=== PATIENT | male | born 1930 | race Caucasian/White ===

== ENCOUNTER → 2016-09-06 | Outpatient (CLI) | payer MEDICARE, OTHER ==
[~2016-09-06] MED LIST: ALPR0.5T3 PO; ALUM5LIQ PO; AMLO5TAB22 PO; ASPI81TA82 PO; ATOR80TA PO; BENI40TA31 PO; ERGO2000 PO; IMDU30TA PO; LEVO.05 PO; METH4PAK PO; NEBI5 PO; NITR0.4S SL; NOVOLOGMXP SC; OCUV PO; OMEP20TA PO; TIMO0.5S6 EACH EYE; VITA100020 PO; VITA20002 PO
[2016-09-06 11:11] LABS: AUTOMATED NEUTROPHIL # 4.1 TH/MM3 (1.8-7.7); BASOPHIL % 0.3 % (0.0-2.0); EOSINOPHIL % 0.5 % (0.0-4.0); HEMATOCRIT 36.3 % (39.0-51.0); HEMO FLAGS DIFF FINAL; LYMPH % 30.5 % (9.0-44.0); LYMPHOCYTE # 2.2 TH/MM3 (1.0-4.8); MEAN CELL VOLUME 86.4 FL (80.0-100.0); MEAN CORPUSCULAR HEMOGLOBIN 28.1 PG (27.0-34.0); MEAN CORPUSCULAR HGB CONC 32.5 % (32.0-36.0); MONO % 12.5 % (0.0-8.0); NEUT % 56.2 % (16.0-70.0); PLATELET COUNT 134 TH/MM3 (150-450); RED CELL DISTRIBUTION WIDTH 16.2 % (11.6-17.2); WHITE BLOOD COUNT 7.3 TH/MM3 (4.0-11.0)
[2016-09-06 11:29] LABS: ALKALINE PHOSPHATASE 72 U/L (45-117); ALT (GPT) 22 U/L (12-78); ANION GAP 9 MEQ/L (5-15); AST (GOT) 14 U/L (15-37); BICARBONATE 28.5 MEQ/L (21.0-32.0); BLOOD UREA NITROGEN 37 MG/DL (7-18); CHLORIDE 108 MEQ/L (98-107); GLOMERULAR FILTRATION RATE 39 ML/MIN (>89); GLUCOSE,FASTING 152 MG/DL (74-99); HDL CHOLESTEROL 82.4 MG/DL (40.0-60.0); LDL CHOLESTEROL 52 MG/DL (0-99); POTASSIUM 4.7 MEQ/L (3.5-5.1); SODIUM (NA) 145 MEQ/L (136-145); TOTAL BILIRUBIN ADULT 0.7 MG/DL (0.2-1.0)
[2016-09-06 12:17] LABS: HEMOGLOBIN A1a 1.7 %; HEMOGLOBIN A1b 2.5 %; HEMOGLOBIN Ao 80.6 %; HEMOGLOBIN LA1C 2.6 %; HEMOGLOBIN P3 6.6 %
== END ==
LOC: PLAB 08:36
PROVIDERS: ATTEND Family Medicine
DX: I10 Essential (primary) hypertension (principal)
CPT/HCPCS: 36415; 80053; 80061; 83036; 84443; 85025

== ENCOUNTER → 2016-09-20 | Outpatient (CLI) | payer MEDICARE, OTHER ==
[2016-09-20 15:58] LABS: AUTOMATED NEUTROPHIL # 3.3 TH/MM3 (1.8-7.7); BASOPHIL % 0.7 % (0.0-2.0); EOSINOPHIL # 0.1 TH/MM3 (0-0.4); EOSINOPHIL % 1.5 % (0.0-4.0); HEMATOCRIT 34.2 % (39.0-51.0); HEMO FLAGS DIFF FINAL; LYMPH % 30.6 % (9.0-44.0); LYMPHOCYTE # 1.9 TH/MM3 (1.0-4.8); MEAN CELL VOLUME 86.9 FL (80.0-100.0); MEAN CORPUSCULAR HGB CONC 32.3 % (32.0-36.0); MONO % 15.2 % (0.0-8.0); PLATELET COUNT 120 TH/MM3 (150-450); RED BLOOD COUNT 3.94 MIL/MM3 (4.50-5.90); RED CELL DISTRIBUTION WIDTH 15.8 % (11.6-17.2); WHITE BLOOD COUNT 6.2 TH/MM3 (4.0-11.0)
[2016-09-20 16:20] LABS: BACTERIA, URINE RARE /hpf; BLOOD, URINE NEG (NEG); COMMENT (UR) CULTURE INDICATED; CULTURE IF INDICATED CULTURE INDICATED; GLUCOSE,URINE NEG (NEG); KETONE, URINE NEG (NEG); MUCUS URINE FEW /lpf (OCC); NITRITE,URINE NEG (NEG); URINE COLOR YELLOW (YELLW/STRAW)
[2016-09-20 16:34] LABS: AMYLASE 38 U/L (25-115); ANION GAP 7 MEQ/L (5-15); AST (GOT) 14 U/L (15-37); BLOOD UREA NITROGEN 31 MG/DL (7-18); CHLORIDE 108 MEQ/L (98-107); GLOMERULAR FILTRATION RATE 40 ML/MIN (>89); POTASSIUM 4.1 MEQ/L (3.5-5.1); SODIUM (NA) 141 MEQ/L (136-145)
[2016-09-20 17:00] LABS: ALKALINE PHOSPHATASE 77 U/L (45-117); ALT (GPT) 18 U/L (12-78); TOTAL BILIRUBIN ADULT 0.6 MG/DL (0.2-1.0)
== END ==
LOC: PLAB 15:00
PROVIDERS: ATTEND Family Medicine
DX: R14.0 Abdominal distension (gaseous) (principal); R53.82 Chronic fatigue, unspecified; N18.3 Chronic kidney disease, stage 3 (moderate); R50.9 Fever, unspecified; B95.2 Enterococcus as the cause of diseases classified elsewhere
CPT/HCPCS: 36415; 80053; 81001; 82150; 82607; 83690; 84443; 85025; 87040; 87077; 87086; 87186

== ENCOUNTER → 2016-12-06 | Outpatient (CLI) | payer MEDICARE, OTHER ==
[2016-12-06 14:15] LABS: ALKALINE PHOSPHATASE 88 U/L (45-117); ALT (GPT) 28 U/L (12-78); ANION GAP 10 MEQ/L (5-15); AST (GOT) 19 U/L (15-37); BICARBONATE 26.5 MEQ/L (21.0-32.0); BLOOD UREA NITROGEN 51 MG/DL (7-18); CHLORIDE 106 MEQ/L (98-107); GLOMERULAR FILTRATION RATE 36 ML/MIN (>89); GLUCOSE,FASTING 113 MG/DL (74-99); HDL CHOLESTEROL 71.5 MG/DL (40.0-60.0); LDL CHOLESTEROL 52 MG/DL (0-99); POTASSIUM 4.2 MEQ/L (3.5-5.1); SODIUM (NA) 142 MEQ/L (136-145); TOTAL BILIRUBIN ADULT 0.6 MG/DL (0.2-1.0)
[2016-12-06 14:42] LABS: MICRO ALBUMIN RANDOM URINE RAW 25.5 MG/L (0.0-30.0)
[2016-12-06 17:14] LABS: HEMOGLOBIN A1a 1.3 %; HEMOGLOBIN A1b 2.1 %; HEMOGLOBIN Ao 81.7 %; HEMOGLOBIN LA1C 2.4 %; HEMOGLOBIN P3 6.6 %
== END ==
LOC: PLAB 09:25
PROVIDERS: ATTEND Family Medicine
DX: E53.8 Deficiency of other specified B group vitamins (principal); E78.5 Hyperlipidemia, unspecified; E11.9 Type 2 diabetes mellitus without complications; E03.9 Hypothyroidism, unspecified; I12.9 Hypertensive chronic kidney disease with stage 1 through stage 4 chronic kidney disease, or unspecified chronic kidney disease; N18.9 Chronic kidney disease, unspecified; E11.22 Type 2 diabetes mellitus with diabetic chronic kidney disease; E11.21 Type 2 diabetes mellitus with diabetic nephropathy
CPT/HCPCS: 36415; 80053; 80061; 82043; 82607; 82652; 83036; 83970; 84443

== ENCOUNTER → 2017-02-15 | Outpatient (CLI) | payer MEDICARE, OTHER | LOC: HRAD 11:43 | PROVIDERS: ATTEND Urology | DX: N28.9 Disorder of kidney and ureter, unspecified (principal) ==

== ENCOUNTER → 2017-02-27 | Outpatient (CLI) | payer MEDICARE, OTHER | LOC: PLAB 10:21 | PROVIDERS: ATTEND Urology | DX: R31.1 Benign essential microscopic hematuria (principal) | CPT/HCPCS: 88112 ==

== ENCOUNTER → 2017-03-08 | Outpatient (CLI) | payer MEDICARE, OTHER ==
[2017-03-08 13:32] LABS: ALT (GPT) 23 U/L (12-78); ANION GAP 7 MEQ/L (5-15); AST (GOT) 12 U/L (15-37); BICARBONATE 25.8 MEQ/L (21.0-32.0); BLOOD UREA NITROGEN 41 MG/DL (7-18); CHLORIDE 108 MEQ/L (98-107); GLOMERULAR FILTRATION RATE 34 ML/MIN (>89); GLUCOSE,FASTING 166 MG/DL (74-99); POTASSIUM 4.3 MEQ/L (3.5-5.1); SODIUM (NA) 141 MEQ/L (136-145)
[2017-03-08 13:59] LABS: ALKALINE PHOSPHATASE 68 U/L (45-117); HDL CHOLESTEROL 87.3 MG/DL (40.0-60.0); LDL CHOLESTEROL 47 MG/DL (0-99); LDL CHOLESTEROL DIRECT 50 MG/DL (0-99); TOTAL BILIRUBIN ADULT 0.7 MG/DL (0.2-1.0)
[2017-03-08 16:53] LABS: HEMOGLOBIN A1a 1.3 %; HEMOGLOBIN A1b 2.5 %; HEMOGLOBIN Ao 80.1 %; HEMOGLOBIN LA1C 2.8 %; HEMOGLOBIN P3 7.1 %
== END ==
LOC: PLAB 08:31
PROVIDERS: ATTEND Family Medicine
DX: I12.9 Hypertensive chronic kidney disease with stage 1 through stage 4 chronic kidney disease, or unspecified chronic kidney disease (principal); N18.3 Chronic kidney disease, stage 3 (moderate); E11.22 Type 2 diabetes mellitus with diabetic chronic kidney disease; E11.42 Type 2 diabetes mellitus with diabetic polyneuropathy; E78.5 Hyperlipidemia, unspecified; E53.8 Deficiency of other specified B group vitamins
CPT/HCPCS: 36415; 80053; 80061; 82306; 82607; 83036; 83721

== ENCOUNTER 2017-03-22 14:10 | Day surgery (SDC) | payer MEDICARE, OTHER ==
[2017-03-22 14:28] VITALS: BP 125/70; PULSE 77; RESP 18; TEMP 98.2; O2SAT 95
--- NOTE | 2017-03-22 15:59 | RADRPT ---
EXAM DATE/TIME: 03/22/2017 14:37 [place] COMPARISON : No previous studies available for comparison. INDICATIONS : Right renal mass biopsy with cryoablation OBJECTIVE: Temperature: 98.2 Heart Rate: 77 Blood Pressure: 125/70 Respiratory: 18 Oximetry: 95 PNEUMONIA VACCINE: HISTORY OF PRESENT ILLNESS: The patient is a 86-year-old with a history of multiple spontaneously dense renal masses. The patient underwent radiofrequency ablation of a left upper pole renal mass in 2010. We are requested to asses s the patient's imaging to determine if any of the existing lesions have significantly changed. PAST MEDICAL HISTORY : 1. Myocardial infarction.2001 2. Carcinoma, bladder. 3. Hypertension. 4. Gastroesophageal reflux disease. 5. Diabetes mellitus type 2. 6. Radiofrequency ablation of a left renal Mass. 2010. PAST SURGICAL HISTORY : 1. Coronary artery stent. 2. Arthroscopy Bladder surgery with radiation SOCIAL HISTORY : Social alcohol use. ALLERGIES: 1. NKDA MEDICATIONS: 1. Aspirin 81 mg q.d. 2. Bdvxbadq21/30 35 units b.i.d. Levothyroxine 50 mcg q.d. Olmesartan 40/12.5 mg q.d. Amlodipine 2.5 mg q.d. Omeprozole 20 mg b.i.d. Atorvasatin 80 mg q.d. Isosoride [place] 30mg mg q.d. Vit D3 2000 units q.d. Vit B12 PHYSICAL EXAMINATION: CV: Regular rate and rhythm. Lungs: Clear to auscultation. Abdomen: Soft, non-tender. No masses or organomegaly. Positive bowel sounds. Denies pain IMAGING STUDIES: The patient has a large series of outpatient imaging. This dates back to 2010. CT scans from 2011, , 2015 and 2016 were reviewed. There are 2 lesions in the right kidney. The upper pole lesion has ranged in size from 1.4-1.7 cm. It is not significantly changed. The lesion inferiorly has ranged in size from 1.9-2.1 cm. This is felt to be stable as well. The lesions are well-circumscribed and spontaneously dense probably representi ng hemorrhagic or proteinaceous cyst The previously ablated lesion in the left upper pole is no longer identified. There is a lesion proje cting off the midpole which measured 5 mm in 2014. It measured 8 mm on the exam of 2016. This is too small to definitively characterize. ASSESSMENT: The lesions within the patient's kidneys are essentially unchanged. The spontaneously dense appearanc e and the stability would suggest they are probably benign. With the patient's advanced age I would r ecommend followup CT scan in 2 years to document stability. PLAN: Followup CT scan of the abdomen with out contrast in 2 years. TIME SPENT: 15 min TECH NOTE: Meds continued: Timoptic0.5% 1 drop each eye, Alprazolam 0.5 mg prnTMONA SHEA Moran MR#:[id number] :86 Exam Dt /Desc: March 22, 2017INVASIVE RADIOLOGY CONSULT Miko Kan MD on March 22, 2017 at 15:52 Board Certified Radiologist. This report was verified electronically.
== END 2017-03-22 15:00 | disposition home or self-care (01) ==
LOC: HROP 14:10 → HRIP 14:11 → HROP 15:00
PROVIDERS: ATTEND Urology
DX: N28.89 Other specified disorders of kidney and ureter (principal); I10 Essential (primary) hypertension; I25.2 Old myocardial infarction; K21.9 Gastro-esophageal reflux disease without esophagitis; E11.9 Type 2 diabetes mellitus without complications; Z85.51 Personal history of malignant neoplasm of bladder; Z95.5 Presence of coronary angioplasty implant and graft; Z79.82 Long term (current) use of aspirin; Z79.4 Long term (current) use of insulin; Z79.899 Other long term (current) drug therapy

== ENCOUNTER → 2017-05-16 | Outpatient (CLI) | payer MEDICARE, OTHER ==
[2017-05-16 10:38] LABS: AUTOMATED NEUTROPHIL # 2.7 TH/MM3 (1.8-7.7); BASOPHIL % 0.5 % (0.0-2.0); EOSINOPHIL % 0.8 % (0.0-4.0); HEMATOCRIT 35.5 % (39.0-51.0); HEMO FLAGS DIFF FINAL; LYMPH % 33.1 % (9.0-44.0); LYMPHOCYTE # 1.7 TH/MM3 (1.0-4.8); MEAN CELL VOLUME 90.3 FL (80.0-100.0); MEAN CORPUSCULAR HEMOGLOBIN 29.5 PG (27.0-34.0); MEAN CORPUSCULAR HGB CONC 32.7 % (32.0-36.0); NEUT % 52.6 % (16.0-70.0); PLATELET COUNT 133 TH/MM3 (150-450); RED BLOOD COUNT 3.93 MIL/MM3 (4.50-5.90); RED CELL DISTRIBUTION WIDTH 15.7 % (11.6-17.2); WHITE BLOOD COUNT 5.1 TH/MM3 (4.0-11.0)
[2017-05-16 10:46] LABS: BICARBONATE 24.8 MEQ/L (21.0-32.0); POTASSIUM 3.6 MEQ/L (3.5-5.1)
[2017-05-16 10:52] LABS: URINE TOTAL PROTEIN TIMED 14.4 MG/DL
[2017-05-16 10:58] LABS: KAPPA LAMBDA RATIO 1.67 (1.57-3.93)
[2017-05-16 10:59] LABS: TOTAL PROTEIN SPE 5.9 GM/DL (6.0-7.6)
[2017-05-16 11:08] LABS: BACTERIA, URINE OCC /hpf; BLOOD, URINE NEG (NEG); GLUCOSE,URINE NEG (NEG); HYALINE CAST, URINE 1 /lpf (RARE); KETONE, URINE NEG (NEG); MUCUS URINE FEW /lpf (OCC); NITRITE,URINE NEG (NEG); URINE COLOR YELLOW (YELLW/STRAW)
[2017-05-16 22:08] LABS: ALBUMIN SPE 3.7 GM/DL (3.50-5.00); ALPHA 1 GLOBULIN 0.18 GM/DL (0.11-0.29); ALPHA 2 GLOBULIN 0.87 GM/DL (0.22-1.00); BETA GLOBULINS (SPE) 0.61 GM/DL (0.53-1.03)
[2017-05-18 17:51] LABS: HCV RNA PCR IU/ML LESS THAN 15 IU/mL (0-14); HCV RNA PCR LOGIU/ML LESS THAN 1.18 (0-1.18)
[2017-05-19 03:51] LABS: KAPPA/LAMBDA FREE 1.85 (0.26-1.65)
== END ==
LOC: PLAB 08:50
PROVIDERS: ATTEND Physician Assistant
DX: N18.3 Chronic kidney disease, stage 3 (moderate) (principal)
CPT/HCPCS: 36415; 80069; 81001; 82570; 82784; 83883; 83970; 84156; 84165; 85025; 86160; 86162; 86334; 86335; 87522

== ENCOUNTER → 2017-08-22 | Outpatient (CLI) | payer MEDICARE, OTHER ==
[2017-08-22 14:07] LABS: ALBUMIN 2.9 GM/DL (3.4-5.0); AST (GOT) 32 U/L (15-37); BICARBONATE 26.2 MEQ/L (21.0-32.0); BLOOD UREA NITROGEN 23 MG/DL (7-18); CALCIUM 10.3 MG/DL (8.5-10.1); CHLORIDE 106 MEQ/L (98-107); CREATININE 1.44 MG/DL (0.60-1.30); GLOMERULAR FILTRATION RATE 46 ML/MIN (>89); GLUCOSE,FASTING 156 MG/DL (74-99); SODIUM (NA) 140 MEQ/L (136-145)
[2017-08-22 14:08] LABS: ALT (GPT) 30 U/L (12-78); CHOLESTEROL 126 MG/DL (120-200)
[2017-08-22 14:11] LABS: ALKALINE PHOSPHATASE 66 U/L (45-117); CHOLESTEROL/ HDL RATIO 2.35 RATIO; HDL CHOLESTEROL 53.5 MG/DL (40.0-60.0); LDL CHOLESTEROL 38 MG/DL (0-99); LDL CHOLESTEROL DIRECT 60 MG/DL (0-99); TOTAL BILIRUBIN ADULT 0.5 MG/DL (0.2-1.0); TOTAL PROTEIN 6.4 GM/DL (6.4-8.2); TRIGLYCERIDES 172 MG/DL (42-150)
[2017-08-22 18:43] LABS: HEMOGLOBIN A1C 7.7 % (4.3-6.0)
== END ==
LOC: PLAB 09:13
PROVIDERS: ATTEND Family Medicine
DX: I12.9 Hypertensive chronic kidney disease with stage 1 through stage 4 chronic kidney disease, or unspecified chronic kidney disease (principal); N18.3 Chronic kidney disease, stage 3 (moderate); E11.22 Type 2 diabetes mellitus with diabetic chronic kidney disease; E78.5 Hyperlipidemia, unspecified; E53.8 Deficiency of other specified B group vitamins; E55.9 Vitamin D deficiency, unspecified; E03.9 Hypothyroidism, unspecified; Z87.39 Personal history of other diseases of the musculoskeletal system and connective tissue; Z51.81 Encounter for therapeutic drug level monitoring
CPT/HCPCS: 36415; 80053; 80061; 82306; 82607; 83036; 83721; 84443; 84550

== ENCOUNTER → 2017-11-13 | Outpatient (CLI) | payer MEDICARE, OTHER ==
[2017-11-13 14:33] LABS: AUTOMATED NEUTROPHIL # 3.3 TH/MM3 (1.8-7.7); BASOPHIL % 0.3 % (0.0-2.0); EOSINOPHIL # 0.1 TH/MM3 (0-0.4); EOSINOPHIL % 1.6 % (0.0-4.0); HEMATOCRIT 31.5 % (39.0-51.0); HEMOGLOBIN 10.2 GM/DL (13.0-17.0); LYMPH % 27.1 % (9.0-44.0); LYMPHOCYTE # 1.6 TH/MM3 (1.0-4.8); MEAN CORPUSCULAR HEMOGLOBIN 28.4 PG (27.0-34.0); MEAN CORPUSCULAR HGB CONC 32.3 % (32.0-36.0); MEAN PLATELET VOLUME 11.1 FL (7.0-11.0); MONO % 13.2 % (0.0-8.0); MONOCYTE # 0.8 TH/MM3 (0-0.9); NEUT % 57.8 % (16.0-70.0); PLATELET COUNT 195 TH/MM3 (150-450); RED BLOOD COUNT 3.58 MIL/MM3 (4.50-5.90); RED CELL DISTRIBUTION WIDTH 17.7 % (11.6-17.2); WHITE BLOOD COUNT 5.8 TH/MM3 (4.0-11.0)
[2017-11-13 14:42] LABS: BACTERIA, URINE RARE /hpf; BILIRUBIN, URINE NEG (NEG); BLOOD, URINE NEG (NEG); GLUCOSE,URINE NEG (NEG); HYALINE CAST, URINE 3 /lpf (RARE); KETONE, URINE NEG (NEG); MUCUS URINE FEW /lpf (OCC); NITRITE,URINE NEG (NEG); URINE COLOR LIGHT-YELLOW (YELLW/STRAW); URINE LEUKOCYTE ESTERASE SMALL (NEG)
[2017-11-13 14:58] LABS: % SATURATION IRON PROFILE 16.4 % (20-50); ALBUMIN 2.9 GM/DL (3.4-5.0); BICARBONATE 24.3 MEQ/L (21.0-32.0); BLOOD UREA NITROGEN 27 MG/DL (7-18); CALCIUM 9.6 MG/DL (8.5-10.1); CHLORIDE 107 MEQ/L (98-107); CREATININE 1.89 MG/DL (0.60-1.30); GLOMERULAR FILTRATION RATE 34 ML/MIN (>89); GLUCOSE,RANDOM 167 MG/DL (74-106); IRON (FE) 46 MCG/DL (65-175); PHOSPHORUS 2.8 MG/DL (2.5-4.9); SODIUM (NA) 141 MEQ/L (136-145); TOTAL IRON BINDING CAPACITY 280 MCG/DL (250-450)
[2017-11-13 15:01] LABS: FERRITIN 72 NG/ML (26-388)
== END ==
LOC: PLAB 11:23
PROVIDERS: ATTEND Internal Medicine Nephrology
DX: E55.9 Vitamin D deficiency, unspecified (principal); N18.3 Chronic kidney disease, stage 3 (moderate); D63.1 Anemia in chronic kidney disease; R82.90 Unspecified abnormal findings in urine
CPT/HCPCS: 36415; 80069; 81001; 82306; 82570; 82728; 83540; 83550; 83970; 84156; 85025; 87086

== ENCOUNTER → 2017-12-19 | Outpatient (CLI) | payer MEDICARE, OTHER ==
[2017-12-19 11:33] LABS: ALBUMIN 2.9 GM/DL (3.4-5.0); ALKALINE PHOSPHATASE 81 U/L (45-117); ALT (GPT) 22 U/L (12-78); AST (GOT) 17 U/L (15-37); BLOOD UREA NITROGEN 41 MG/DL (7-18); CALCIUM 9.4 MG/DL (8.5-10.1); CREATININE 1.58 MG/DL (0.60-1.30); GLOMERULAR FILTRATION RATE 42 ML/MIN (>89); GLUCOSE,FASTING 159 MG/DL (74-99); TOTAL PROTEIN 6.1 GM/DL (6.4-8.2)
[2017-12-19 11:34] LABS: BICARBONATE 27.1 MEQ/L (21.0-32.0); CHLORIDE 108 MEQ/L (98-107); CHOLESTEROL 145 MG/DL (120-200); CHOLESTEROL/ HDL RATIO 2.28 RATIO; HDL CHOLESTEROL 63.4 MG/DL (40.0-60.0); LDL CHOLESTEROL 66 MG/DL (0-99); SODIUM (NA) 143 MEQ/L (136-145); TOTAL BILIRUBIN ADULT 0.6 MG/DL (0.2-1.0); TRIGLYCERIDES 78 MG/DL (42-150)
[2017-12-19 11:45] LABS: LDL CHOLESTEROL DIRECT 70 MG/DL (0-99)
[2017-12-19 16:18] LABS: HEMOGLOBIN A1C 7.8 % (4.3-6.0)
== END ==
LOC: PLAB 07:42
PROVIDERS: ATTEND Family Medicine
DX: M06.4 Inflammatory polyarthropathy (principal); E78.5 Hyperlipidemia, unspecified; E11.42 Type 2 diabetes mellitus with diabetic polyneuropathy; E03.9 Hypothyroidism, unspecified; Z87.39 Personal history of other diseases of the musculoskeletal system and connective tissue
CPT/HCPCS: 36415; 80053; 80061; 83036; 83721; 84443; 84550

== ENCOUNTER → 2018-01-04 | Outpatient (CLI) | payer MEDICARE, OTHER ==
[~2018-01-04] MED LIST changes: +ALLO300T2 PO; +ASPI1TAB57 PO; +ATOR80TA45 PO; +CALC0.5C PO; +CIPR250T52 PO; +FERR240T PO; +INSU1INJ13 SQ; +ISOS30TA3 PO; +LACT PO; +LEVO50TA4 PO; +MEDR4TAB PO; +N7030SS SQ; +NITR1SUB3 SL; +NOVO7030P2 SQ; +OLME1TAB60 PO; +OMEP20TA93 PO; +TIMO0.5S5 EACH EYE; +[UNRECOGNIZED DRUG - OTHER] OP
[2018-01-04 20:23] LABS: BILIRUBIN, URINE NEG (NEG); BLOOD, URINE NEG (NEG); GLUCOSE,URINE NEG (NEG); HYALINE CAST, URINE 3 /lpf (RARE); KETONE, URINE NEG (NEG); NITRITE,URINE NEG (NEG); SQUAMOUS EPITHELIAL CELL URINE 1 /hpf (0-5); URINE COLOR YELLOW (YELLW/STRAW); URINE LEUKOCYTE ESTERASE TRACE (NEG)
[2018-01-04 20:27] LABS: BASOPHIL % 0.3 % (0.0-2.0); EOSINOPHIL # 0.1 TH/MM3 (0-0.4); HEMATOCRIT 31.8 % (39.0-51.0); HEMOGLOBIN 10.2 GM/DL (13.0-17.0); LYMPH % 22.6 % (9.0-44.0); LYMPHOCYTE # 1.5 TH/MM3 (1.0-4.8); MEAN CELL VOLUME 87.8 FL (80.0-100.0); MEAN CORPUSCULAR HEMOGLOBIN 28.2 PG (27.0-34.0); MEAN CORPUSCULAR HGB CONC 32.2 % (32.0-36.0); MONO % 15.1 % (0.0-8.0); PLATELET COUNT 159 TH/MM3 (150-450); RED BLOOD COUNT 3.62 MIL/MM3 (4.50-5.90); RED CELL DISTRIBUTION WIDTH 18.3 % (11.6-17.2); WHITE BLOOD COUNT 6.5 TH/MM3 (4.0-11.0)
[2018-01-04 20:40] LABS: ALBUMIN 2.6 GM/DL (3.4-5.0); AST (GOT) 20 U/L (15-37); BICARBONATE 22.3 MEQ/L (21.0-32.0); BLOOD UREA NITROGEN 36 MG/DL (7-18); CALCIUM 10.1 MG/DL (8.5-10.1); CHLORIDE 105 MEQ/L (98-107); CREATININE 1.81 MG/DL (0.60-1.30); GLOMERULAR FILTRATION RATE 36 ML/MIN (>89); GLUCOSE,FASTING 84 MG/DL (74-99); SODIUM (NA) 139 MEQ/L (136-145)
[2018-01-04 20:44] LABS: ALKALINE PHOSPHATASE 74 U/L (45-117); ALT (GPT) 14 U/L (12-78); TOTAL BILIRUBIN ADULT 0.8 MG/DL (0.2-1.0); TOTAL PROTEIN 6.3 GM/DL (6.4-8.2)
== END ==
LOC: PLAB 11:31
PROVIDERS: ATTEND Family Medicine
DX: R14.0 Abdominal distension (gaseous) (principal); N18.3 Chronic kidney disease, stage 3 (moderate); R10.2 Pelvic and perineal pain; B95.2 Enterococcus as the cause of diseases classified elsewhere
CPT/HCPCS: 36415; 80053; 81001; 85025; 87077; 87086; 87186

== ENCOUNTER 2018-01-05 11:48 | Inpatient (IN) | payer MEDICARE, OTHER ==
[~2018-01-05] VITALS: Ht 167.6 cm; Wt 66.0 kg
[~2018-01-05 11:48] MED LIST changes: -ALLO300T2 PO; -ASPI1TAB57 PO; -ATOR80TA45 PO; -CALC0.5C PO; -CIPR250T52 PO; -FERR240T PO; -INSU1INJ13 SQ; -ISOS30TA3 PO; -LACT PO; -LEVO50TA4 PO; -MEDR4TAB PO; -N7030SS SQ; -NITR1SUB3 SL; -NOVO7030P2 SQ; -OLME1TAB60 PO; -OMEP20TA93 PO; -TIMO0.5S5 EACH EYE; -[UNRECOGNIZED DRUG - OTHER] OP
[2018-01-05 11:54] VITALS: BP 112/61; PULSE 116; RESP 18; TEMP 98.7; O2SAT 96
[2018-01-05 12:14] LABS: BILIRUBIN, URINE NEG (NEG); BLOOD, URINE NEG (NEG); GLUCOSE,URINE NEG (NEG); KETONE, URINE NEG (NEG); NITRITE,URINE NEG (NEG); URINE COLOR YELLOW (YELLW/STRAW); URINE LEUKOCYTE ESTERASE NEG (NEG)
--- NOTE | 2018-01-05 12:21 | PD ---
HPI Chief Complaint: GI Complaint Time Seen by Provider: 12:20 Travel History International Travel<30 days: No Contact w/Intl Traveler<30days: No Traveled to known affect area: No History of Present Illness HPI 87-year-old male came to the emergency room with his and daughter with history of generalized weakness, lower abdominal cramps, nausea, vomiting and some diarrhea. Patient says the symptoms with the abdominal cramping bloating has been going on for past 1 month. He has also had loss of appetite and in past 1 week he has lost 10 pounds. He went to see his primary care yesterday where blood work, urinalysis and CAT scan was ordered and done. They were told that the blood test appear to be within normal limit and the CAT scan did not show any acute findings. However patient has not been feeling good and has been getting periodic chills where he has to cover himself with blanket. Based on all the symptoms the daughter decided to bring her to the emergency room. Patient had an oral temperature of 99.5 and upon my request a rectal temperature that was done which was 102.7. No history of dysuria or cough. Patient does have previous history of bladder, prostate and kidney cancer. He sees a urologist once every 6 months and has been told that so far he seems fine from a cancer standpoint. Patient was tachycardic in triage. He appears to be in moderate distress. He describes his lower abdominal pain as cramping. Patient says he feels very gassy and after he passes gas the cramps seem to go away. He also has history of diverticulosis but he was told the CAT scan did not show any diverticulitis. His diarrhea is mostly mucousy and small quantity 3-4 times a day. No blood in it. 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) Asthma: No Autoimmune Disease: No Blood Disorders: No Anxiety: No Depression: No Heart Rhythm Problems: No Cancer: Yes (BLADDER CANCER AND PROSTATE CANCER) Cardiac Catheterization: Yes Cardiovascular Problems: Yes (Stent ) High Cholesterol: Yes Chemotherapy: No Chest Pain: No Congestive Heart Failure: No COPD: No Coronary Artery Disease: Yes Diabetes: Yes Patient Takes Glucophage: No Diminished Hearing: Yes (BILATERAL HEARING AIDS) Endocrine: Yes (DIABETES) Gastrointestinal Disorders: Yes GERD: Yes Glaucoma: Yes Genitourinary: Yes (HX BLADDER CANCER RECENT KIDNEY MASS) Hepatitis: No Hiatal Hernia: No Hypertension: Yes Immune Disorder: No Kidney Stones: No Musculoskeletal: Yes (ARTHRITIS HIPS AND HANDS) Neurologic: No Psychiatric: No Reproductive: No Respiratory: Yes (SOB OCCASIONALLY) Immunizations Current: Yes Myocardial Infarction: No Radiation Therapy: Yes (PROSTRATE 2008) Renal Failure: No Sleep Apnea: No Thyroid Disease: Yes Ulcer: Yes (20YRS AGO NO RECURRANCE) Tetanus Vaccination: Unknown Past Surgical History Abdominal Surgery: No AICD: No Appendectomy: Yes Arteriovenous Shunt: No Cardiac Surgery: Yes (STENT 12/05) Cholecystectomy: No Coronary Stent: Yes Ear Surgery: No Endocrine Surgery: No Eye Surgery: No Genitourinary Surgery: Yes (BLADDER CANCER REMOVAL, prostate) Gynecologic Surgery: No Insulin Pump: No Joint Replacement: No Neurologic Surgery: No Oral Surgery: No Pacemaker: No Thoracic Surgery: No Tonsillectomy: Yes Other Surgery: Yes (TONSILS OUT 6 YEARS OLD) Social History Alcohol Use: Yes (RARE) Tobacco Use: No (70 yrs ago) Substance Use: No Allergies-Medications (Allergen,Severity, Reaction): Coded Allergies: No Known Allergies (Verified Adverse Reaction, Unknown, 01/05/18) Comments No known drug allergies. Reported Meds & Prescriptions Reported Meds & Active Scripts Active Reported Tresiba Flextouch Pen Inj (Insulin Degludec Inj) 600 unit/3 ML Pen 20 Units SQ DAILY@0600 Ferrous Gluconate 240 Mg (27 Mg Iron) Tab 240 Mg PO DAILY Calcitriol 0.5 Mcg Cap 1 Mcg PO MOWEFR Allopurinol 300 Mg Tab 300 Mg PO DAILY Alprazolam 0.5 Mg Tab 0.5 Mg PO Q4H PRN Nitroglycerin SL (Nitroglycerin) 0.4 Mg Subl 0.4 Mg SL DIRECTED PRN ONE TABLET UNDER THE TONGUE NEEDED FOR CHEST PAIN, MAY REPEAT EVERY FIVE MINUTES FOR A TOTAL OF 3 DOSES OR CALL 911 IF NO RELIEF Timoptic Opth Drops (Timolol Opth Drops) 0.5 % Soln 1 Drop EACH EYE DAILY B&l Yancy Rewetting Drops (Oxygen Permeable Lens Products) 1 Tawny Tawny 1 Drop OP DAILY Vitamin D2 (Ergocalciferol) 2,000 Unit Tab 50,000 Units PO Isosorbide Mononitrate ER (Isosorbide Mononitrate) 30 Mg Nohemi 30 Mg PO DAILY Aspirin 81 (Aspirin) 81 Mg Tabdr 81 Mg PO DAILY Omeprazole 20 Mg Tab 20 Mg PO DAILY Atorvastatin (Atorvastatin Calcium) 80 Mg Tab 80 Mg PO HS Olmesartan-Hctz 40-12.5 mg Tab (Olmesartan/Hydrochlorothiazide) 40 Mg-12.5 Mg Tablet 1 Tab PO DAILY Levothyroxine (Levothyroxine Sodium) 50 Mcg Tab 50 Mcg PO DAILY Narrative Medication List of his home medications reviewed from the nursing note. Review of Systems Except as stated in HPI: all other systems reviewed are Neg General / Constitutional: Positive: Fever, Chills Gastrointestinal: Positive: Nausea, Vomiting, Diarrhea, Abdominal Pain Physical Exam Narrative GENERAL: Awake, alert, elderly, frail, moderate distress SKIN: Focused skin assessment warm/dry. HEAD: Atraumatic. Normocephalic. EYES: Pupils equal and round. No scleral icterus. No injection or drainage. ENT: No nasal bleeding or discharge. Dry mucous membrane. NECK: Trachea midline. No JVD. CARDIOVASCULAR: Regular rate and rhythm. No murmur appreciated. RESPIRATORY: No accessory muscle use. Clear to auscultation. Breath sounds equal bilaterally. GASTROINTESTINAL: Abdomen soft, non-tender, nondistended. Hepatic and splenic margins not palpable. MUSCULOSKELETAL: No obvious deformities. No clubbing. No cyanosis. No edema. NEUROLOGICAL: Awake and alert. No obvious cranial nerve deficits. Motor grossly within normal limits. Normal speech. PSYCHIATRIC: Appropriate mood and affect; insight and judgment normal. Data Data Last Documented VS Vital Signs Date Time Temp Pulse Resp B/P (MAP) Pulse Ox O2 Delivery O2 Flow Rate FiO2 01/05/18 12:34 102.6 01/05/18 11:54 116 18 112/61 (78) 96 Orders Orders Urinalysis - C+S If Indicated (01/05/18 11:54) Urine Culture (01/05/18 12:04) Sepsis Workup Initiated (01/05/18 ) Complete Blood Count With Diff (01/05/18 12:34) Comprehensive Metabolic Panel (01/05/18 12:34) Lactic Acid Sepsis Protocol (01/05/18 12:34) Blood Culture (01/05/18 12:34) Chest, Single Ap (01/05/18 12:34) Blood Glucose (01/05/18 12:34) Ecg Monitoring (01/05/18 12:34) Iv Access Insert/Monitor (01/05/18 12:34) Oximetry (01/05/18 12:34) Oxygen Administration (01/05/18 12:34) Ceftriaxone Inj (Rocephin Inj) (01/05/18 12:45) Sodium Chlor 0.9% 1000 Ml Inj (Ns 1000 M (01/05/18 12:45) Acetaminophen (Tylenol) (01/05/18 12:45) Influenzae A/B Antigen (01/05/18 12:37) Labs Laboratory Tests Test 01/05/18 12:04 01/05/18 12:30 01/05/18 13:34 Urine Color YELLOW Urine Turbidity CLEAR Urine pH 5.0 Urine Specific [place] 1.020 Urine Protein NEG mg/dL Urine Glucose (UA) NEG mg/dL Urine Ketones NEG mg/dL Urine Occult Blood NEG Urine Nitrite NEG Urine Bilirubin NEG Urine Urobilinogen 0.2 MG/DL Urine Leukocyte Esterase NEG Urine WBC 6-8 /hpf Urine WBC Clumps OCC Urine Bacteria FEW /hpf Urine Granular Casts 0-2 /lpf Microscopic Urinalysis Comment CULTURE INDICATED White Blood Count 5.9 TH/MM3 Red Blood Count 3.49 MIL/MM3 Hemoglobin 10.2 GM/DL Hematocrit 30.9 % Mean Corpuscular Volume 88.6 FL Mean Corpuscular Hemoglobin 29.3 PG Mean Corpuscular Hemoglobin Concent 33.0 % Red Cell Distribution Width 17.3 % Platelet Count 178 TH/MM3 Mean Platelet Volume 12.0 FL Neutrophils (%) (Auto) 75.6 % Lymphocytes (%) (Auto) 14.3 % Monocytes (%) (Auto) 9.6 % Eosinophils (%) (Auto) 0.3 % Basophils (%) (Auto) 0.2 % Neutrophils # (Auto) 4.5 TH/MM3 Lymphocytes # (Auto) 0.8 TH/MM3 Monocytes # (Auto) 0.6 TH/MM3 Eosinophils # (Auto) 0.0 TH/MM3 Basophils # (Auto) 0.0 TH/MM3 CBC Comment DIFF FINAL Differential Comment Blood Urea Nitrogen 37 MG/DL Creatinine 2.10 MG/DL Random Glucose 156 MG/DL Total Protein 6.4 GM/DL Albumin 2.6 GM/DL Calcium Level 9.7 MG/DL Alkaline Phosphatase 79 U/L Aspartate Amino Transf (AST/SGOT) 22 U/L Alanine Aminotransferase (ALT/SGPT) 13 U/L Total Bilirubin 0.6 MG/DL Sodium Level 140 MEQ/L Potassium Level 3.9 MEQ/L Chloride Level 106 MEQ/L Carbon Dioxide Level 21.8 MEQ/L Anion Gap 12 MEQ/L Estimat Glomerular Filtration Rate 30 ML/MIN MDM Medical Decision Making Medical Screen Exam Complete: Yes Emergency Medical Condition: Yes Medical Record Reviewed: Yes Differential Diagnosis Sepsis, UTI, pneumonia, influenza Narrative Course 2:05 PM I pulled the CAT scan report that was done at [facility]. The impression was no acute finding to explain patient's lower abdominal pain symptoms. However patient did have a lower renal pole nodule that had grown in size from 6 mm to 15 mm. When I discussed this with the family they were aware of this finding and they were asked to follow-up with the urologist. The UA shows some increased white blood cell in the urine. Blood test results mostly are back. Patient has renal insufficiency that has worsened from the recent past. I gave him 1 L of IV fluid bolus. Chest x-ray just shows a moderate to large hiatal hernia otherwise negative. I am awaiting for the lactic acid result. Patient was given IV Rocephin for the possible UTI, IV fluid bolus and Tylenol for the fever. He will need to be admitted. Patient and family is aware of this. Procedures EKG Prior to Arrival: No Sepsis Criteria SIRS Criteria (2 or more): Temp > 100.9 or < 96.8, Heart rate over 90 Sepsis Criteria (SIRS+source): Infect source susp/known Diagnosis Primary Impression: SIRS (systemic inflammatory response syndrome) Additional Impressions: Possible urinary tract infection Failure to thrive Qualified Codes: R62.7 - Adult failure to thrive Admitting Information Admitting Physician Requests: it Ariadna Caceres MD Jan 05, 2018 12:21
[2018-01-05 12:27] LABS: WHITE BLOOD CELL CLUMPS OCC
[2018-01-05 12:28] LABS: BACTERIA, URINE FEW /hpf
[2018-01-05 12:34] VITALS: TEMP 102.6
[2018-01-05 12:40] VITALS: O2SAT 96
[2018-01-05] MEDS ORDERED: ACETAMINOPHEN 325 MG TAB PO ONE (12:45)
[2018-01-05] MEDS ORDERED: cefTRIAXone INJ 1,000 MG in SODIUM CHLORIDE 0.9% INJ 100 ML IV ONE (12:45)
[2018-01-05] MEDS ORDERED: SODIUM CHLOR 0.9% 1000 ML INJ 1,000 ML IV ONE (12:45)
[2018-01-05 13:03] LABS: AUTOMATED NEUTROPHIL # 4.5 TH/MM3 (1.8-7.7); BASOPHIL % 0.2 % (0.0-2.0); EOSINOPHIL % 0.3 % (0.0-4.0); HEMATOCRIT 30.9 % (39.0-51.0); HEMOGLOBIN 10.2 GM/DL (13.0-17.0); LYMPH % 14.3 % (9.0-44.0); LYMPHOCYTE # 0.8 TH/MM3 (1.0-4.8); MEAN CELL VOLUME 88.6 FL (80.0-100.0); MEAN CORPUSCULAR HEMOGLOBIN 29.3 PG (27.0-34.0); MONO % 9.6 % (0.0-8.0); MONOCYTE # 0.6 TH/MM3 (0-0.9); NEUT % 75.6 % (16.0-70.0); PLATELET COUNT 178 TH/MM3 (150-450); RED BLOOD COUNT 3.49 MIL/MM3 (4.50-5.90); RED CELL DISTRIBUTION WIDTH 17.3 % (11.6-17.2); WHITE BLOOD COUNT 5.9 TH/MM3 (4.0-11.0)
--- NOTE | 2018-01-05 13:05 | RADRPT ---
EXAM DATE: 01/05/2018 12:57 PM EDT AGE/SEX: 87 years / Male INDICATIONS: Fever. CLINICAL DATA: This is the patient's initial encounter. Patient reports that signs and symptoms have been present for 2 days and indicates a pain score of 0/10. MEDICAL/SURGICAL HISTORY: . Hypertension. Myocardial infarction. Carcinoma, prostatic. Carcinom a, bladder Coronary artery stent. COMPARISON: [facility] – [place], CHEST SINGLE AP, 02/19/2016. . FINDINGS: A single AP view of the chest demonstrates the lungs to be symmetrically aerated without evidence of mass, infiltrate or effusion. The left medial lung base is not well visualized. The cardiomediastina l contours are unremarkable. Osseous structures are intact. A moderate to large retrocardiac hiatal hernia is again noted. There are atherosclerotic changes in the aorta. CONCLUSION: 1. No acute cardiopulmonary disease on this single view exam. The left retrocardiac region is not we ll visualized secondary to the hernia. Further evaluation with a standard 2 view chest study may be h elpful.. 2. Moderate to large retrocardiac hiatal hernia again noted. Electronically signed by: Williams Cook MD 01/05/2018 1:04 PM EDT
[2018-01-05] MEDS ORDERED: ALLO300T2 PO (13:12)
[2018-01-05] MEDS ORDERED: ISOS30TA3 PO (13:12)
[2018-01-05] MEDS ORDERED: MEDR4TAB PO ×2 (13:12)
[2018-01-05] MEDS ORDERED: NOVO7030P2 SQ (13:12)
[2018-01-05] MEDS ORDERED: OMEP20TA93 PO (13:12)
[2018-01-05] MEDS ORDERED: TIMO0.5S5 EACH EYE (13:12)
[2018-01-05] MEDS ORDERED: ASPI1TAB57 PO (13:12)
[2018-01-05] MEDS ORDERED: FERR240T PO (13:12)
[2018-01-05] MEDS ORDERED: NITR1SUB3 SL (13:12)
[2018-01-05] MEDS ORDERED: CALC0.5C PO (13:12)
[2018-01-05] MEDS ORDERED: ERGO2000 PO (13:12)
[2018-01-05] MEDS ORDERED: LEVO50TA4 PO (13:12)
[2018-01-05] MEDS ORDERED: OLME1TAB60 PO (13:12)
[2018-01-05] MEDS ORDERED: ATOR80TA45 PO (13:12)
[2018-01-05] MEDS ORDERED: [UNRECOGNIZED DRUG - OTHER] OP (13:12)
[2018-01-05] MEDS ORDERED: N7030SS SQ (13:12)
[2018-01-05] MEDS ORDERED: ALPR0.5T3 PO (13:12)
[2018-01-05 13:14] LABS: CHLORIDE 106 MEQ/L (98-107); SODIUM (NA) 140 MEQ/L (136-145)
[2018-01-05 13:18] LABS: CALCIUM 9.7 MG/DL (8.5-10.1)
[2018-01-05 13:19] LABS: ALBUMIN 2.6 GM/DL (3.4-5.0); BICARBONATE 21.8 MEQ/L (21.0-32.0); BLOOD UREA NITROGEN 37 MG/DL (7-18); GLUCOSE,RANDOM 156 MG/DL (74-106)
[2018-01-05 13:22] LABS: ALT (GPT) 13 U/L (12-78); AST (GOT) 22 U/L (15-37); GLOMERULAR FILTRATION RATE 30 ML/MIN (>89)
[2018-01-05 13:23] LABS: TOTAL BILIRUBIN ADULT 0.6 MG/DL (0.2-1.0); TOTAL PROTEIN 6.4 GM/DL (6.4-8.2)
[2018-01-05 13:25] LABS: ALKALINE PHOSPHATASE 79 U/L (45-117)
[2018-01-05] MEDS ORDERED: INSU1INJ13 SQ (13:37)
[2018-01-05 14:10] LABS: LACTIC ACID SEPSIS PROTOCOL 2.1 mmol/L (0.4-2.0)
[2018-01-05] MEDS ORDERED: LEVOFLOXACIN 500 MG PREMIX INJ 100 ML IV ONE (14:30)
[2018-01-05] MEDS ORDERED: GLUCAGON 1 MG/ML VIAL OTHER PRN (15:00)
[2018-01-05] MEDS ORDERED: RESP: ALBUTEROL 2.5 MG/IPRATROPIUM 0.5 MG NEB (PRN) NEB (15:00)
[2018-01-05] MEDS ORDERED: ONDANSETRON HCL 4 MG/2 ML VIAL IVP PRN (15:00)
[2018-01-05] MEDS ORDERED: SODIUM CHLORIDE 0.9% FLUSH 10 ML FLUSH IV FLUSH PRN (15:00)
[2018-01-05] MEDS ORDERED: NALOXONE HCL 0.4 MG/ML AMP IV PUSH PRN (15:00)
[2018-01-05] MEDS ORDERED: MAGNESIUM HYDROXIDE SUSP 30 ML CUP PO PRN (15:00)
[2018-01-05] MEDS ORDERED: DEXTROSE 50% IN WATER 50 ML VIAL(D50) IV PUSH PRN (15:00)
[2018-01-05] MEDS ORDERED: ACETAMINOPHEN 325 MG TAB PO PRN ×2 (15:00)
--- NOTE | 2018-01-05 15:03 | HHI.HP ---
[facility] Isaiah Salas MD Admission Diagnosis Sepsis, UTI Diagnoses: (1) Sepsis Chief Complaint: I have not been feeling well Travel History International Travel<30 Days: No Contact w/Intl Traveler <30 Da: No Traveled to Known Affected Are: No Sepsis Criteria SIRS Criteria (2 or more): Temp > 100.9 or < 96.8, Heart rate over 90 Severe Sepsis (+one): Organ Dysfunction, Lactate >2 History of Present Illness 87-year-old past medical history of diabetes type 2, hypertension, hyperlipidemia was brought to the ED family member for evaluation of multiple complaints including generalized weakness, associated with lower abdominal cramping nausea, vomiting and occasional diarrhea 3-4 times per day described mostly mucousy, compounded by a 10 pound weight loss occurring over the past 7 days. Patient was seen yesterday by his PCP was ordered CT abdomen and urinalysis along with some blood work. All the reports have checked out within normal limits. Patient also has been complaining of chills, which prompted family member to bring him to the ED for further evaluation. 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) Cardiac Catheterization: Yes Cardiovascular Problems: Yes (Stent ) High Cholesterol: Yes Coronary Artery Disease: Yes Diabetes: Yes Diminished Hearing: Yes (BILATERAL HEARING AIDS) Endocrine: Yes (DIABETES) Gastrointestinal Disorders: Yes GERD: Yes Glaucoma: Yes Genitourinary: Yes (HX BLADDER CANCER RECENT KIDNEY MASS) Hypertension: Yes Musculoskeletal: Yes (ARTHRITIS HIPS AND HANDS) Respiratory: Yes (SOB OCCASIONALLY) Immunizations Current: Yes Radiation Therapy: Yes (PROSTRATE 2008) Thyroid Disease: Yes Ulcer: Yes (20YRS AGO NO RECURRANCE) Past Surgical History Appendectomy: Yes Cardiac Surgery: Yes (STENT 12/05) Coronary Stent: Yes Genitourinary Surgery: Yes (BLADDER CANCER REMOVAL, prostate) Tonsillectomy: Yes Other Surgery: Yes (TONSILS OUT 6 YEARS OLD) Reported Medications Tresiba Flextouch Pen Inj (Insulin Degludec Inj) 600 unit/3 ML Pen 20 Units SQ DAILY@0600 Ferrous Gluconate 240 Mg (27 Mg Iron) Tab 240 Mg PO DAILY Calcitriol 0.5 Mcg Cap 1 Mcg PO MOWEFR Allopurinol 300 Mg Tab 300 Mg PO DAILY Alprazolam 0.5 Mg Tab 0.5 Mg PO Q4H PRN Nitroglycerin SL (Nitroglycerin) 0.4 Mg Subl 0.4 Mg SL DIRECTED PRN ONE TABLET UNDER THE TONGUE NEEDED FOR CHEST PAIN, MAY REPEAT EVERY FIVE MINUTES FOR A TOTAL OF 3 DOSES OR CALL 911 IF NO RELIEF Timoptic Opth Drops (Timolol Opth Drops) 0.5 % Soln 1 Drop EACH EYE DAILY B&l Yancy Rewetting Drops (Oxygen Permeable Lens Products) 1 Tawny Tawny 1 Drop OP DAILY Vitamin D2 (Ergocalciferol) 2,000 Unit Tab 50,000 Units PO Isosorbide Mononitrate ER (Isosorbide Mononitrate) 30 Mg Nohemi 30 Mg PO DAILY Aspirin 81 (Aspirin) 81 Mg Tabdr 81 Mg PO DAILY Omeprazole 20 Mg Tab 20 Mg PO DAILY Atorvastatin (Atorvastatin Calcium) 80 Mg Tab 80 Mg PO HS Olmesartan-Hctz 40-12.5 mg Tab (Olmesartan/Hydrochlorothiazide) 40 Mg-12.5 Mg Tablet 1 Tab PO DAILY Levothyroxine (Levothyroxine Sodium) 50 Mcg Tab 50 Mcg PO DAILY Allergies: Coded Allergies: No Known Allergies (Verified Allergy, Unknown, 01/05/18) Family History Due to patient's advanced age, family history not relevant for this case Social History Alcohol Use: Yes (RARE) Tobacco Use: No (70 yrs ago) Substance Use: No Physical Exam Vital Signs Vital Signs Date Time Temp Pulse Resp B/P (MAP) Pulse Ox O2 Delivery O2 Flow Rate FiO2 01/05/18 12:40 96 01/05/18 12:40 96 01/05/18 12:34 102.6 01/05/18 11:54 98.7 116 18 112/61 (87) 96 Physical Exam GENERAL: This is a well-nourished, well-developed patient, in no apparent distress. SKIN: No rashes, ecchymoses or lesions. Cool and dry. HEAD: Atraumatic. Normocephalic. No temporal or scalp tenderness. EYES: Pupils equal round and reactive. Extraocular motions intact. No scleral icterus. No injection or drainage. ENT: Nose without bleeding, purulent drainage or septal hematoma. Throat without erythema, tonsillar hypertrophy or exudate. Uvula midline. Airway patent. NECK: Trachea midline. No JVD or lymphadenopathy. Supple, nontender, no meningeal signs. CARDIOVASCULAR: Regular rate and rhythm without murmurs, gallops, or rubs. RESPIRATORY: Clear to auscultation. Breath sounds equal bilaterally. No wheezes , rales, or rhonchi. GASTROINTESTINAL: Abdomen soft, non-tender, nondistended. No hepato-splenomegaly , or palpable masses. No guarding. MUSCULOSKELETAL: Extremities without clubbing, cyanosis, or edema. No joint tenderness, effusion, or edema noted. No calf tenderness. Negative Homans sign bilaterally. NEUROLOGICAL: Awake and alert. Cranial nerves II through XII intact. Motor and sensory grossly within normal limits. Five out of 5 muscle strength in all muscle groups. Normal speech. Laboratory Laboratory Tests Test 01/05/18 12:04 01/05/18 12:30 01/05/18 13:34 Urine Color YELLOW Urine Turbidity CLEAR Urine pH 5.0 Urine Specific [place] 1.020 Urine Protein NEG Urine Glucose (UA) NEG Urine Ketones NEG Urine Occult Blood NEG Urine Nitrite NEG Urine Bilirubin NEG Urine Urobilinogen 0.2 Urine Leukocyte Esterase NEG Urine WBC 6-8 Urine WBC Clumps OCC Urine Bacteria FEW Urine Granular Casts 0-2 Microscopic Urinalysis Comment CULTURE INDICATED White Blood Count 5.9 Red Blood Count 3.49 Hemoglobin 10.2 Hematocrit 30.9 Mean Corpuscular Volume 88.6 Mean Corpuscular Hemoglobin 29.3 Mean Corpuscular Hemoglobin Concent 33.0 Red Cell Distribution Width 17.3 Platelet Count 178 Mean Platelet Volume 12.0 Neutrophils (%) (Auto) 75.6 Lymphocytes (%) (Auto) 14.3 Monocytes (%) (Auto) 9.6 Eosinophils (%) (Auto) 0.3 Basophils (%) (Auto) 0.2 Neutrophils # (Auto) 4.5 Lymphocytes # (Auto) 0.8 Monocytes # (Auto) 0.6 Eosinophils # (Auto) 0.0 Basophils # (Auto) 0.0 CBC Comment DIFF FINAL Differential Comment Blood Urea Nitrogen 37 Creatinine 2.10 Random Glucose 156 Total Protein 6.4 Albumin 2.6 Calcium Level 9.7 Alkaline Phosphatase 79 Aspartate Amino Transf (AST/SGOT) 22 Alanine Aminotransferase (ALT/SGPT) 13 Total Bilirubin 0.6 Sodium Level 140 Potassium Level 3.9 Chloride Level 106 Carbon Dioxide Level 21.8 Anion Gap 12 Estimat Glomerular Filtration Rate 30 Lactic Acid Level 2.1 Date/Time Source Procedure Growth Status 01/05/18 13:41 Blood Peripheral Aerobic Blood Culture Pending Received 01/05/18 13:41 Blood Peripheral Anaerobic Blood Culture Pending Received 01/05/18 12:54 Nasal Aspirate Influenza Types A,B Antigen (MAHAMED) - Final NEGATIVE FOR FLU A AND B ANTIGEN.... Complete 01/05/18 12:04 Urine Clean Catch Urine Culture Pending Received Result Diagram: 01/05/18 1230 01/05/18 1230 Imaging Last Impressions Chest X-Ray 01/05/18 1234 Signed Impressions: CONCLUSION: 1. No acute cardiopulmonary disease on this single view exam. The left retroca rdiac region is not well visualized secondary to the hernia. Further evaluation with a standard 2 view chest study may be helpful.. 2. Moderate to large retrocardiac hiatal hernia again noted. Septic Shock Reassessment Septic shock perfusion: reassessment completed Caprini VTE Risk Assessment Caprini VTE Risk Assessment: Mod/High Risk (score >= 2) Caprini Risk Assessment Model Point Value = 1 Point Value = 2 Point Value = 3 Point Value = 5 Age 41-60 Minor surgery BMI > 25 kg/m2 Swollen legs Varicose veins or History of unexplained or recurrent spontaneous Oral contraceptives or hormone replacement Sepsis (< 1 month) Serious lung disease, including pneumonia (< 1 month) Abnormal pulmonary function Acute myocardial infarction Congestive heart failure (< 1 month) History of inflammatory bowel disease Medical patient at bed rest Age 61-74 Arthroscopic surgery Major open surgery (> 45 min) Laparoscopic surgery (> 45 min) Malignancy Confined to bed (> 72 hours) Immobilizing plaster cast Central venous access Age >= 75 History of VTE Family history of VTE Factor V Leiden Prothrombin [id number] Lupus anticoagulant Anticardiolipin antibodies Elevated serum homocysteine Heparin-induced thrombocytopenia Other congenital or acquired thrombophilia Stroke (< 1 month) Elective arthroplasty Hip, pelvis, or leg fracture Acute spinal cord injury (< 1 month) Prophylaxis Regimen Total Risk Factor Score Risk Level Prophylaxis Regimen 0-1 Low Early ambulation 2 Moderate Order ONE of the following: *Sequential Compression Device (SCD) *Heparin 5000 units SQ BID 3-4 Higher Order ONE of the following medications: *Heparin 5000 units SQ TID *Enoxaparin/Lovenox 40 mg SQ daily (WT < 150 kg, CrCl > 30 mL/min) *Enoxaparin/Lovenox 30 mg SQ daily (WT < 150 kg, CrCl > 10-29 mL/min) *Enoxaparin/Lovenox 30 mg SQ BID (WT < 150 kg, CrCl > 30 mL/min) AND/OR *Sequential Compression Device (SCD) 5 or more Highest Order ONE of the following medications: *Heparin 5000 units SQ TID (Preferred with Epidurals) *Enoxaparin/Lovenox 40 mg SQ daily (WT < 150 kg, CrCl > 30 mL/min) *Enoxaparin/Lovenox 30 mg SQ daily (WT < 150 kg, CrCl > 10-29 mL/min) *Enoxaparin/Lovenox 30 mg SQ BID (WT < 150 kg, CrCl > 30 mL/min) AND *Sequential Compression Device (SCD) Assessment and Plan Problem List: (1) Sepsis ICD Code: A41.9 - Sepsis, unspecified organism (2) Possible urinary tract infection ICD Code: R39.89 - Other symptoms and signs involving the genitourinary system Status: Acute Assessment and Plan 87 years old man with Severe Sepsis: Temp > 100.9 or < 96.8, Heart rate over 90, Lactate >2 ; source( possible UTI) Status post Rocephin and Levaquin in ED 1, will continue with Rocephin and start vancomycin pending culture report Check Legionella and pneumococcal urinary antigen Will also check stool for ova and parasites Possible UTI Outside CT abdomen/pelvis noted and reviewed by me and finding within normal limits Status post Rocephin IV daily 1 in ED, continue with antibiotic pending urine culture Febrile episodes Chest x-ray noted and reviewed by me without any cardiopulmonary disease Outside CT abdomen/pelvis noted and reviewed by me and finding within normal limit Urine, blood culture pending Check stool for ova parasites Check pneumococcal and Legionella urinary antigens Continue with above antibiotics 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 Avoid all nephrotoxic drug Start gentle IV fluid hydration and monitor BUN and creatinine Normochromic normocytic anemia H&H stable Continue to monitor CBC Diabetes type 2 Start medium sliding scale insulin with fingerstick blood glucose monitoring , however hold patient's home dose of Lantus but start instead Levemir 5units Q12H History of hyperlipidemia, hypertension and other chronic medical conditions Resume patient outpatient medications DVT prophylaxis: Bilateral SCDs Code Status Full code Discussed Condition With ED physician, patient, , daughter Physician Certification 2 Midnight Certification Type: Admission for Inpatient Services Order for Inpatient Services The services are ordered in accordance with Medicare regulations or non- Medicare payer requirements, as applicable. In the case of services not specified as inpatient-only, they are appropriately provided as inpatient services in accordance with the 2-midnight benchmark. Estimated LOS (days): 2 days is the estimated time the patient will need to remain in the hospital, assuming treatment plan goals are met and no additional complications. Post-Hospital Plan: Not yet determined Alcides Wooten MD Jan 05, 2018 15:03
[2018-01-05 15:29] VITALS: BP 115/61
[2018-01-05] MEDS ORDERED: Vancomycin Consult Pharmacy 1 EA OTHER SCH (15:45)
[2018-01-05] MEDS ORDERED: ALPRAZolam 0.5 MG TAB PO PRN (16:00)
[2018-01-05] MEDS: INSULIN ASPART SUPPLEMENTAL SCALE SQ SCH ×2 (17:00→20:52)
[2018-01-05] MEDS ORDERED: VANCOMYCIN INJ 1,250 MG in SODIUM CHLOR 0.9% 250 ML INJ 250 ML IV ONE (17:00)
[2018-01-05] MEDS: SODIUM CHLOR 0.9% 1000 ML INJ 1,000 ML IV SCH (18:10)
[2018-01-05 20:00] VITALS: BP 152/66; PULSE 52; RESP 18; TEMP 96.3; O2SAT 100
[2018-01-05] MEDS: LACTOBACILLUS ACIDOPHILUS TAB PO SCH (20:51)
[2018-01-05] MEDS: SODIUM CHLORIDE 0.9% FLUSH 10 ML FLUSH IV FLUSH SCH (20:52)
[2018-01-05] MEDS: INSULIN DETEMIR 100 UNITS/ML VIAL SQ SCH (20:52)
[2018-01-05] MEDS ORDERED: ATORVASTATIN 40 MG TAB PO SCH (21:00)
[2018-01-06] VITALS: BP 122/58; PULSE 60; RESP 18; TEMP 96.7; O2SAT 97
[2018-01-06] MEDS ORDERED: INSULIN DEGLUDEC 20 UNIT SQ SCH (06:00)
[2018-01-06] MEDS: SODIUM CHLOR 0.9% 1000 ML INJ 1,000 ML IV SCH (06:40)
[2018-01-06 07:50] VITALS: BP 175/94; PULSE 65; RESP 20; TEMP 96; O2SAT 98
[2018-01-06] MEDS: INSULIN ASPART SUPPLEMENTAL SCALE SQ SCH (08:00)
[2018-01-06 08:20] LABS: HEMATOCRIT 27.6 % (39.0-51.0); HEMOGLOBIN 8.7 GM/DL (13.0-17.0); MEAN CELL VOLUME 88.8 FL (80.0-100.0); MEAN CORPUSCULAR HEMOGLOBIN 27.9 PG (27.0-34.0); MEAN CORPUSCULAR HGB CONC 31.4 % (32.0-36.0); MEAN PLATELET VOLUME 11.4 FL (7.0-11.0); PLATELET COUNT 150 TH/MM3 (150-450); RED BLOOD COUNT 3.11 MIL/MM3 (4.50-5.90); RED CELL DISTRIBUTION WIDTH 17.3 % (11.6-17.2); WHITE BLOOD COUNT 3.8 TH/MM3 (4.0-11.0)
[2018-01-06] MEDS: SODIUM CHLORIDE 0.9% FLUSH 10 ML FLUSH IV FLUSH SCH (08:24)
[2018-01-06 08:26] LABS: CHLORIDE 110 MEQ/L (98-107); SODIUM (NA) 142 MEQ/L (136-145)
[2018-01-06] MEDS: LACTOBACILLUS ACIDOPHILUS TAB PO SCH (08:26)
[2018-01-06 08:49] LABS: ALKALINE PHOSPHATASE 64 U/L (45-117); ALT (GPT) 11 U/L (12-78); AST (GOT) 16 U/L (15-37); BICARBONATE 23.1 MEQ/L (21.0-32.0); BLOOD UREA NITROGEN 28 MG/DL (7-18); GLOMERULAR FILTRATION RATE 48 ML/MIN (>89); GLUCOSE,RANDOM 112 MG/DL (74-106); TOTAL BILIRUBIN ADULT 0.5 MG/DL (0.2-1.0); TOTAL PROTEIN 5.2 GM/DL (6.4-8.2)
[2018-01-06] MEDS ORDERED: ASPIRIN EC 81 MG TABEC PO SCH (09:00)
[2018-01-06] MEDS ORDERED: TIMOLOL MALEATE 0.5% OPHT SOLN 5 ML BTL EACH EYE SCH (09:00)
[2018-01-06] MEDS ORDERED: ISOSORBIDE MONONITRATE 30 MG CR TAB (IMDUR) PO SCH (09:00)
[2018-01-06] MEDS ORDERED: ALLOPURINOL 300 MG TAB PO SCH (09:00)
[2018-01-06] MEDS ORDERED: OLMESARTAN PO SCH (09:00)
[2018-01-06] MEDS ORDERED: LOSARTAN 50 MG TAB PO SCH (09:00)
[2018-01-06] MEDS ORDERED: HYDROCHLOROTHIAZIDE PO SCH (09:00)
[2018-01-06] MEDS ORDERED: HYDROCHLOROTHIAZIDE 12.5 MG CAP PO SCH (09:00)
[2018-01-06] MEDS ORDERED: [UNRECOGNIZED DRUG - OTHER] PO SCH (09:00)
[2018-01-06] MEDS ORDERED: LEVOTHYROXINE SODIUM 50 MCG TAB PO SCH (09:00)
[2018-01-06] MEDS ORDERED: PANTOPRAZOLE SOD 20 MG DELAYED RELEASE TAB PO SCH (09:00)
[2018-01-06] MEDS ORDERED: LACT PO (09:08)
[2018-01-06] MEDS ORDERED: CIPR250T52 PO (09:08)
--- NOTE | 2018-01-06 09:09 | HHI.DCPOC ---
Discharge Care Plan Diagnosis: (1) REROL (acute kidney injury) (2) Dehydration (3) Anemia (4) UTI (urinary tract infection) (5) Sepsis Goals to Promote Your Health * To prevent worsening of your condition and complications * To maintain your health at the optimal level Directions to Meet Your Goals Take your medications as prescribed Follow your dietary instruction Follow activity as directed Keep your appointments as scheduled Take your immunizations and boosters as scheduled If your symptoms worsen call your PCP, if no PCP go to Urgent Care Center or Emergency Room Smoking is Dangerous to Your Health. Avoid second hand smoke Call the 24-hour hour crisis hotline for domestic abuse at Oliva Jameson MD Jan 06, 2018 09:09
[2018-01-06] MEDS: INSULIN DETEMIR 100 UNITS/ML VIAL SQ SCH (09:29)
[2018-01-06] MEDS ORDERED: PNEUMOCOCCAL POLYVALENT INJ 25 MCG/0.5 ML SYR IM ONE (10:00)
--- NOTE | 2018-01-06 10:39 | HHI.DS ---
cc: Isaiah Salas MD Discharge Summary Admission Date Jan 05, 2018 at 14:26 Discharge Date: Jan 06, 2018 Admitting Diagnosis Sepsis, UTI (1) Sepsis ICD Code: A41.9 - Sepsis, unspecified organism (2) Possible urinary tract infection ICD Code: R39.89 - Other symptoms and signs involving the genitourinary system Status: Acute Procedures None Brief History - From Admission 87-year-old past medical history of diabetes type 2, hypertension, hyperlipidemia was brought to the ED family member for evaluation of multiple complaints including generalized weakness, associated with lower abdominal cramping nausea, vomiting and occasional diarrhea 3-4 times per day described mostly mucousy, compounded by a 10 pound weight loss occurring over the past 7 days. Patient was seen yesterday by his PCP was ordered CT abdomen and urinalysis along with some blood work. All the reports have checked out within normal limits. Patient also has been complaining of chills, which prompted family member to bring him to the ED for further evaluation. While in the ED, patient had a temp of 102.6 and was found to be tachycardic with a heart rate of 116, and abnormal lab include lactic acid of 2.1 and evidence of renal worsening compared to his previous visits in the ED January 04, 2018 CBC/BMP: 01/06/18 0645 01/06/18 0645 Significant Findings Laboratory Tests Test 01/05/18 12:04 01/05/18 12:30 01/05/18 13:34 01/05/18 16:17 Urine WBC 6-8 /hpf (0-5) Urine WBC Clumps OCC (NONE) Urine Bacteria FEW /hpf (NONE) Red Blood Count 3.49 MIL/MM3 (4.50-5.90) Hemoglobin 10.2 GM/DL (13.0-17.0) Hematocrit 30.9 % (39.0-51.0) Red Cell Distribution Width 17.3 % (11.6-17.2) Mean Platelet Volume 12.0 FL (7.0-11.0) Neutrophils (%) (Auto) 75.6 % (16.0-70.0) Monocytes (%) (Auto) 9.6 % (0.0-8.0) Lymphocytes # (Auto) 0.8 TH/MM3 (1.0-4.8) Blood Urea Nitrogen 37 MG/DL (7-18) Creatinine 2.10 MG/DL (0.60-1.30) Random Glucose 156 MG/DL (74-106) Albumin 2.6 GM/DL (3.4-5.0) Estimat Glomerular Filtration Rate 30 ML/MIN (>89) Lactic Acid Level 2.1 mmol/L (0.4-2.0) Test 01/06/18 06:45 White Blood Count 3.8 TH/MM3 (4.0-11.0) Red Blood Count 3.11 MIL/MM3 (4.50-5.90) Hemoglobin 8.7 GM/DL (13.0-17.0) Hematocrit 27.6 % (39.0-51.0) Mean Corpuscular Hemoglobin Concent 31.4 % (32.0-36.0) Red Cell Distribution Width 17.3 % (11.6-17.2) Mean Platelet Volume 11.4 FL (7.0-11.0) Blood Urea Nitrogen 28 MG/DL (7-18) Creatinine 1.40 MG/DL (0.60-1.30) Random Glucose 112 MG/DL (74-106) Total Protein 5.2 GM/DL (6.4-8.2) Albumin 2.0 GM/DL (3.4-5.0) Alanine Aminotransferase (ALT/SGPT) 11 U/L (12-78) Chloride Level 110 MEQ/L (98-107) Estimat Glomerular Filtration Rate 48 ML/MIN (>89) Imaging Last Impressions Chest X-Ray 01/05/18 1234 Signed Impressions: CONCLUSION: 1. No acute cardiopulmonary disease on this single view exam. The left retroca rdiac region is not well visualized secondary to the hernia. Further evaluation with a standard 2 view chest study may be helpful.. 2. Moderate to large retrocardiac hiatal hernia again noted. PE at Discharge GENERAL: This is a well-nourished, well-developed patient, in no apparent distress. CARDIOVASCULAR: Regular rate and rhythm without murmurs, gallops, or rubs. RESPIRATORY: Clear to auscultation. Breath sounds equal bilaterally. No wheezes , rales, or rhonchi. GASTROINTESTINAL: Abdomen soft, non-tender, nondistended. Normal active bowel sounds MUSCULOSKELETAL: Extremities without clubbing, cyanosis, or edema. NEURO: Alert & Oriented x4 to person, place, time, situation. Moves all ext x4 Pt update on day of discharge Patient doing well today. No acute distress this morning he has felt "back to normal ". Renal function is improved. Patient tolerated antibiotics well. Cultures did come back negative however patient has benefited from antibiotics from his urinary tract infection. Hospital Course This patient is a very pleasant 87-year-old gentleman who was seen and treated for urinary tract infection. Cultures did come back negative. Patient also was treated for dehydration and he had sepsis secondary to his urinary tract infection. He did well with antibiotics and was discharged home to follow-up Pt Condition on Discharge: Good Discharge Disposition: Discharge Home Discharge Time: <= 30 minutes Discharge Instructions DIET: Follow Instructions for: Diabetic Diet Activities you can perform: Regular-No Restrictions Follow up Referrals: PCP Follow-up New Medications: Ciprofloxacin (Cipro) 250 Mg Tab 250 MG PO BID for Infection, #10 TAB 0 Refills Lactobacillus Acidophilus (Acidophilus/l-Sporogenes) 35 Million Cell-25 Million Cell Tab 1 TAB PO Q12HR for intestinal health, #31 TAB Continued Medications: Allopurinol (Allopurinol) 300 Mg Tab 300 MG PO DAILY for Gout, #30 TAB 0 Refills Alprazolam (Alprazolam) 0.5 Mg Tab 0.5 MG PO Q4H PRN for ANXIETY, TAB [address] (Aspirin 81) 81 Mg Tabdr 81 MG PO DAILY, TAB 0 Refills Atorvastatin (Atorvastatin) 80 Mg Tab 80 MG PO HS for Cholesterol Management, #30 TAB 0 Refills Calcitriol (Calcitriol) 0.5 Mcg Cap 1 MCG PO MoWeFr for Calcium Supplement, #60 CAP 0 Refills Ergocalciferol (Vitamin D2) 2,000 Unit Tab 16414 UNITS PO [id number] for Nutritional Supplement, TAB 0 Refills Ferrous Gluconate (Ferrous Gluconate) 240 Mg (27 Mg Iron) Tab 240 MG PO DAILY for Nutritional Supplement, #30 TAB 0 Refills Insulin Degludec Inj (Tresiba Flextouch Pen Inj) 600 unit/3 ML Pen 20 UNITS SQ DAILY@0600 for Blood Sugar Management, #9 ML 0 Refills Isosorbide Mononitrate ER (Isosorbide Mononitrate ER) 30 Mg Nohemi 30 MG PO DAILY for Prevent Chest Pain, #30 TAB 0 Refills Levothyroxine (Levothyroxine) 50 Mcg Tab 50 MCG PO DAILY for Thyroid, #30 TAB 0 Refills Nitroglycerin SL (Nitroglycerin SL) 0.4 Mg Subl 0.4 MG SL DIRECTED PRN for CHEST PAIN, #100 TAB.SL 0 Refills ONE TABLET UNDER THE TONGUE NEEDED FOR CHEST PAIN, MAY REPEAT EVERY FIVE MINUTES FOR A TOTAL OF 3 DOSES OR CALL 911 IF NO RELIEF Olmesartan/Hydrochlorothiazide (Olmesartan-Hctz 40-12.5 mg Tab) 40 Mg-12.5 Mg Tablet 1 TAB PO DAILY Omeprazole (Omeprazole) 20 Mg Tab 20 MG PO DAILY, #30 TAB 0 Refills Oxygen Permeable Lens Products (B&l Yancy Rewetting Drops) 1 Tawny Tawny 1 DROP OP DAILY Timolol Opth Drops (Timoptic Opth Drops) 0.5 % Soln 1 DROP EACH EYE DAILY for Glaucoma, #1 BOTTLE 0 Refills Oliva Jameson MD Jan 06, 2018 10:39
[2018-01-06 10:46] LABS: BANDS 2 % (0-6); LYMPHOCYTES 42 % (9-44); MONOCYTES 16 % (0-8); MYELOCYTES 1 % (0-0); NEUTROPHIL # MANUAL DIFF 1.5 TH/MM3 (1.8-7.7); POLYS (SEG NEUTROPHILS) 37 % (16-70)
[2018-01-06] MEDS ORDERED: cefTRIAXone INJ 2,000 MG in SODIUM CHLORIDE 0.9% INJ 100 ML IV SCH (14:00)
[2018-01-07] MEDS ORDERED: PHARMACY ORDERED LAB ONE (06:00)
== END 2018-01-06 12:08 | disposition home or self-care (01) | DRG 872 ==
LOC: PHED 11:48 → PHEDA 14:26 → PH3A 15:26
PROVIDERS: ADMIT Hospitalist; ATTEND Hospitalist
DX: A41.9 Sepsis, unspecified organism (principal); N17.9 Acute kidney failure, unspecified; E11.22 Type 2 diabetes mellitus with diabetic chronic kidney disease; N39.0 Urinary tract infection, site not specified; E11.39 Type 2 diabetes mellitus with other diabetic ophthalmic complication; D64.9 Anemia, unspecified; I12.9 Hypertensive chronic kidney disease with stage 1 through stage 4 chronic kidney disease, or unspecified chronic kidney disease; N18.2 Chronic kidney disease, stage 2 (mild); E78.5 Hyperlipidemia, unspecified; H91.90 Unspecified hearing loss, unspecified ear; E78.00 Pure hypercholesterolemia, unspecified; I25.10 Atherosclerotic heart disease of native coronary artery without angina pectoris; K21.9 Gastro-esophageal reflux disease without esophagitis; E07.9 Disorder of thyroid, unspecified; R65.20 Severe sepsis without septic shock; H40.9 Unspecified glaucoma; K57.90 Diverticulosis of intestine, part unspecified, without perforation or abscess without bleeding; R19.7 Diarrhea, unspecified; E86.0 Dehydration; R62.7 Adult failure to thrive; M19.90 Unspecified osteoarthritis, unspecified site; Z23 Encounter for immunization; Z85.51 Personal history of malignant neoplasm of bladder; Z79.82 Long term (current) use of aspirin; Z85.46 Personal history of malignant neoplasm of prostate; Z97.4 Presence of external hearing-aid; Z95.5 Presence of coronary angioplasty implant and graft; Z85.528 Personal history of other malignant neoplasm of kidney
CPT/HCPCS: 71045; 80053; 81001; 82948; 83605; 85007; 85025; 85027; 86403; 87040; 87077; 87086; 87186; 87205; 87328; 87329; 87449; 87804; J0696; J1956; J3370; J7030; J7050

== ENCOUNTER 2018-02-27 19:22 | Observation (INO) ==
--- NOTE | 2018-02-27 19:45 | ED ---
HPI General Chief Complaint: Chest Pain Stated Complaint: Evac/Chest Pain Time Seen by Provider: 02/27/18 19:40 History of Present Illness HPI narrative: Patient comes emergency department complaining of chest pain that began shortly prior to arrival. Patient states pain began after eating a handful of sugar coated peanuts. Patient reports pain primarily his epigastric area without radiation. Patient reports momentary feeling of nausea. Patient reports taking 3 nitro that alleviated his symptoms. Patient denies any back pain, numbness or tingling anywhere, weakness, headache, vomiting, loss change of bowel bladder, or fevers. Denies anything making it worse. Patient reports last stress test was about a year ago. Last cardiac cath in 2001 when he had a stent placed. Patient was given 3 baby aspirin en route by EMS. Complete Quality Measures for STEMI Alert Patients Related Data Home Medications Medication Instructions Recorded Confirmed allopurinol 300 mg PO DAILY 02/27/18 02/27/18 aspirin [Aspir-81] 81 mg PO DAILY 02/27/18 02/27/18 atorvastatin 80 mg PO DAILY 02/27/18 02/27/18 calcitriol 0.25 mcg PO Q OTHER DAY 02/27/18 02/27/18 ergocalciferol (vitamin D2) 50,000 unit PO QWEEK 02/27/18 02/27/18 [Vitamin D2] ergocalciferol (vitamin D2) 50,000 unit PO QWEEK 02/27/18 02/27/18 [Vitamin D2] ferrous gluconate 240 mg PO DAILY 02/27/18 02/27/18 insulin degludec [Tresiba 200 unit DAILY 02/27/18 02/27/18 FlexTouch U-200] isosorbide mononitrate 30 mg PO DAILY 02/27/18 02/27/18 levothyroxine 50 mcg PO DAILY 02/27/18 02/27/18 lzjnkvhuaq-vjwzcyhcs-ddqmtzhpa 1 tab PO DAILY 02/27/18 02/27/18 pantoprazole [Protonix] 20 mg PO DAILY 02/27/18 02/27/18 timolol maleate [Timoptic] 1 drp OPHTHALMIC (EYE) BID 02/27/18 02/27/18 Allergies Allergy/AdvReac Type Severity Reaction Status Date / Time No Known Allergies Allergy Mild Weakness Uncoded 02/27/18 21:04 Review of Systems Except as stated in HPI: all other systems reviewed are negative PMFSH Medical History Medical History Acute angina (Acute) Bladder cancer (Acute) Diabetes (Acute) Gastritis (Acute) Gout (Acute) Hypercholesteremia (Acute) Hypertension (Acute) Prostate CA (Acute) Surgical History Surgical History History of cardiac cath (Acute) Social History Social History Substance History: No History of Abuse Second Hand Smoke Exposure: No Smoking Status: Former smoker Tobacco Type: Cigarettes How Often Do You Have a Drink Containing Alcohol: Never Recent Travel in [facility] within the Last 8 Weeks: No Recent Out of Country Travel within the Last 8 Weeks: No Exam Narrative Exam Narrative: GENERAL: Well-developed, well nourished, in no acute distress, and non-ill appearing. SKIN: Focused skin assessment warm and dry. HEAD: Atraumatic. Normocephalic. EYES: Pupils equal and round. EOMI. No scleral icterus. No injection or drainage. ENT: No nasal bleeding or discharge. Mucous membranes pink and moist. NECK: Trachea midline. No JVD. Supple. No nuclear rigidity. CARDIOVASCULAR: Regular rate and rhythm. No murmur appreciated. RESPIRATORY: No accessory muscle use. No respiratory distress. Clear to auscultation. Breath sounds equal bilaterally. GASTROINTESTINAL: Abdomen soft, non-tender, nondistended, and no guarding. Hepatic and splenic margins not palpable. Normal bowel sounds x4. No pulsatile mass. MUSCULOSKELETAL: No obvious deformities. No clubbing. No cyanosis. No edema. Full range of motion. NEUROLOGICAL: Awake and alert. No obvious cranial nerve deficits. Motor grossly within normal limits. Normal speech. PSYCHIATRIC: Appropriate mood and affect; insight and judgment normal. Course Initial Documented Vital Signs Temperature 98.7 F 02/27/18 19:35 Pulse Rate 64 02/27/18 19:35 Respiratory Rate 20 02/27/18 19:35 Blood Pressure 151/65 H 02/27/18 19:35 Pulse Oximetry 100 02/27/18 19:35 Last Documented Vital Signs Temperature 98.7 F 02/27/18 19:35 Pulse Rate 67 02/27/18 21:02 Respiratory Rate 18 02/27/18 21:02 Blood Pressure 122/65 02/27/18 21:02 Pulse Oximetry 98 02/27/18 21:02 Medical Decision Making JARON Attestation JARON supervised visit: Yes Attestation: I, Dr. Dominique, have reviewed the advance practice practitioner's documentation and am in agreement, met with the patient face to face, made the diagnosis, and the medical decision making was done by me. 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 Rich Baer. Patient has been asymptomatic until today. Patient had retrosternal subxiphoid pressure/pain prior to arrival to the emergency department that responded to 3 sublingual nitroglycerin with resolution of discomfort. No nausea no vomiting no sweats no shortness of breath or referred pain. Patient states he associated symptoms onset after eating peanuts. No history of gastritis peptic ulcer disease pancreatitis or gallbladder disease. Patient has soft nontender abdomen. Lung sounds clear heart sounds regular rate and rhythm. Patient placed on cardiac rehab nurse with continuous pulse oximetry IV access obtained EKG performed shows no acute ST elevation or injury pattern cardiac enzymes ordered patient had taken nitroglycerin prior to arrival to the emergency department and current discomfort was 0/10 intensity. Patient received aspirin prior to arrival to the emergency department by EMS during transport. Differential chest pain atypical chest pain ACS AK also consider esophageal spasm gastritis pancreatitis biliary colic and even dissection. Patient is symptomatically this time. Serial enzymes not elevated. Plan would be to admit for chest pain with known CAD to chest pain center per protocol. MDM Narrative Medical decision making narrative: Patient seen and examined. IV was established patient was placed on continuous cardiac monitoring. Initial laboratory radiological studies were ordered. Upon review of patient's laboratory and radiological studies. Patient was recommended to be placed in the chest pain center for further treatment evaluation. Discussed patient with Dr. Dominique, who is in agreement plan of care disposition. Discussed all findings plan of care patient is agreeable for admission. All questions were answered. Patient remained stable throughout ED course. Differential Diagnosis Differential Diagnosis: Atypical chest pain, angina, gastritis, pancreatitis, pneumonia, metabolic disturbance Lab Data Lab results reviewed: Yes I reviewed the patient's lab results. Result diagrams: 02/27/18 19:58 02/27/18 19:58 Lab Results 02/27/18 02/27/18 02/27/18 Range/Units 19:58 19:58 19:58 WBC 5.5 (4.0-11.0) th/mm3 RBC 3.23 L (4.50-5.90) mil/mm3 Hgb 9.1 L (13.0-17.0) gm/dL Hct 28.3 L (39.0-51.0) % MCV 87.7 (80.0-100.0) fL MCH 28.3 (27.0-34.0) pg MCHC 32.2 (32.0-36.0) % RDW 16.7 (11.6-17.2) % Plt Count 180 (150-450) th/mm3 MPV 10.7 (7.0-11.0) fL Neut % (Auto) 56.2 (16.0-70.0) % Lymph % (Auto) 27.6 (9.0-44.0) % [place] % (Auto) 15.1 H (0.0-8.0) % Eos % (Auto) 0.6 (0.0-4.0) % Baso % (Auto) 0.5 (0.0-2.0) % Neut # (Auto) 3.1 (1.8-7.7) th/mm3 Lymph # (Auto) 1.5 (1.0-4.8) th/mm3 [place] # (Auto) 0.8 (0.0-0.9) th/mm3 Eos # (Auto) 0.0 (0.0-0.4) th/mm3 Baso # (Auto) 0.0 (0.0-0.2) th/mm3 WBC Differential . Differential Comment Auto diff final PT 9.9 (9.8-11.6) sec INR 1.0 Ratio APTT 26.1 (24.3-30.1) sec Sodium 141 (136-145) meq/L Potassium 3.9 (3.5-5.1) meq/L Chloride 109 H (98-107) meq/L Carbon Dioxide 20.6 L (21.0-32.0) meq/L Anion Gap 11 (5-15) meq/L BUN 42 H (7-18) mg/dL Creatinine 1.87 H (0.60-1.30) mg/dL Estimated GFR 34 L (>89) mL/min Random Glucose 169 H (74-106) mg/dL Calcium 8.9 (8.5-10.1) mg/dL Magnesium (1.5-2.5) mg/dL Total Bilirubin 0.3 (0.2-1.0) mg/dL AST 46 H (15-37) U/L ALT 27 (12-78) U/L Alkaline Phosphatase 105 (45-117) U/L Total Creatine Kinase 34 L (39-308) U/L Troponin I Less than 0.02 L (0.02-0.05) ng/mL B-Natriuretic Peptide (0-100) pg/mL Total Protein 5.7 L (6.4-8.2) g/dL Albumin 2.5 L (3.4-5.0) g/dL Lipase 217 (73-393) U/L 02/27/18 02/27/18 Range/Units 19:58 19:58 WBC (4.0-11.0) th/mm3 RBC (4.50-5.90) mil/mm3 Hgb (13.0-17.0) gm/dL Hct (39.0-51.0) % MCV (80.0-100.0) fL MCH (27.0-34.0) pg MCHC (32.0-36.0) % RDW (11.6-17.2) % Plt Count (150-450) th/mm3 MPV (7.0-11.0) fL Neut % (Auto) (16.0-70.0) % Lymph % (Auto) (9.0-44.0) % [place] % (Auto) (0.0-8.0) % Eos % (Auto) (0.0-4.0) % Baso % (Auto) (0.0-2.0) % Neut # (Auto) (1.8-7.7) th/mm3 Lymph # (Auto) (1.0-4.8) th/mm3 [place] # (Auto) (0.0-0.9) th/mm3 Eos # (Auto) (0.0-0.4) th/mm3 Baso # (Auto) (0.0-0.2) th/mm3 WBC Differential Differential Comment PT (9.8-11.6) sec INR Ratio APTT (24.3-30.1) sec Sodium (136-145) meq/L Potassium (3.5-5.1) meq/L Chloride (98-107) meq/L Carbon Dioxide (21.0-32.0) meq/L Anion Gap (5-15) meq/L BUN (7-18) mg/dL Creatinine (0.60-1.30) mg/dL Estimated GFR (>89) mL/min Random Glucose (74-106) mg/dL Calcium (8.5-10.1) mg/dL Magnesium 1.4 L (1.5-2.5) mg/dL Total Bilirubin (0.2-1.0) mg/dL AST (15-37) U/L ALT (12-78) U/L Alkaline Phosphatase (45-117) U/L Total Creatine Kinase (39-308) U/L Troponin I (0.02-0.05) ng/mL B-Natriuretic Peptide 74 (0-100) pg/mL Total Protein (6.4-8.2) g/dL Albumin (3.4-5.0) g/dL Lipase (73-393) U/L Imaging Data Radiologist's impression: Chest X-Ray 02/27/18 19:40 CONCLUSION: Large hiatal hernia. ECG Data Interpretation: EKG reviewed by Dr. Dominique shows sinus rhythm with first-degree AV block. Ventricular rate 63. No STEMI. Discharge Plan Discharge Disposition Patient Disposition: 30 Still Patient Discharge Condition Condition: Stable Discharge Details Diagnosis: Chest pain Physicians Team ED Provider: Rochelle Dominique ED Midlevel Provider: Wan Garcia Primary Care Provider: Isaiah Salas Attending Provider: Libby Cruz ED Status: Admitted Observation Patient
[2018-02-27 20:27] LABS: Baso % (Auto) 0.5 % (0.0-2.0); Eos % (Auto) 0.6 % (0.0-4.0); Hematocrit 28.3 % (39.0-51.0); Hemoglobin 9.1 gm/dL (13.0-17.0); Lymph # (Auto) 1.5 th/mm3 (1.0-4.8); Lymph % (Auto) 27.6 % (9.0-44.0); Mean Corpuscular HGB Conc 32.2 % (32.0-36.0); Mean Corpuscular Hemoglobin 28.3 pg (27.0-34.0); Mean Corpuscular Volume 87.7 fL (80.0-100.0); Mean Platelet Volume 10.7 fL (7.0-11.0); Mono # (Auto) 0.8 th/mm3 (0.0-0.9); Mono % (Auto) 15.1 % (0.0-8.0); Neut # (Auto) 3.1 th/mm3 (1.8-7.7); Neut % (Auto) 56.2 % (16.0-70.0); Platelet Count 180 th/mm3 (150-450); Red Blood Count 3.23 mil/mm3 (4.50-5.90); Red Cell Distribution Width 16.7 % (11.6-17.2); White Blood Count 5.5 th/mm3 (4.0-11.0)
[2018-02-27 20:51] LABS: Activated Partial Thrombo Time 26.1 sec (24.3-30.1); Prothrombin Time 9.9 sec (9.8-11.6)
--- NOTE | 2018-02-27 21:01 | XR ---
EXAM DATE: 02/27/2018 8:15 PM EDT AGE/SEX: 87 years / Male INDICATIONS: Patient complains of lower chest pain, bilaterally. CLINICAL DATA: This is the patient's initial encounter. Patient reports that signs and symptoms have been present for 1 day and indicates a pain score of 9/10. MEDICAL/SURGICAL HISTORY: Hypertension. Diabetes mellitus type II. Myocardial infarction. . C ardiac stent. COMPARISON: POI, XR CHEST PA AND LAT, 02/01/2017. POI, CT ABDOMEN AND PELVIS W/O CONTRAST, 2017. . FINDINGS: There is a large mass in the left lower chest containing air consistent with a large hiata l hernia. This was present previously. The heart size is normal. The lungs are grossly clear. CONCLUSION: Large hiatal hernia. Electronically signed by: Chase Maier MD 02/27/2018 9:00 PM EDT
[2018-02-27 21:05] LABS: Anion Gap 11 meq/L (5-15); Blood Urea Nitrogen 42 mg/dL (7-18); Carbon Dioxide 20.6 meq/L (21.0-32.0); Chloride 109 meq/L (98-107); Glomerular Filtration Rate 34 mL/min (>89); Glucose,Random 169 mg/dL (74-106); Potassium 3.9 meq/L (3.5-5.1); Sodium 141 meq/L (136-145)
[2018-02-27 21:06] LABS: Alanine Aminotransferase 27 U/L (12-78); Aspartate Aminotransferase 46 U/L (15-37); Calcium 8.9 mg/dL (8.5-10.1)
[2018-02-27 21:07] LABS: Albumin 2.5 g/dL (3.4-5.0); Lipase 217 U/L (73-393)
[2018-02-27 21:11] LABS: Alkaline Phosphatase 105 U/L (45-117); Creatine Kinase 34 U/L (39-308); Total Protein 5.7 g/dL (6.4-8.2)
[2018-02-28 00:23] LABS: Creatine Kinase 42 U/L (39-308)
[2018-02-28 02:59] LABS: Creatine Kinase 29 U/L (39-308)
[2018-02-28] MEDS ORDERED: Isosorbide Mononitrate 30 MG ER 24HR Tablet (Imdur) PO SCH (10:00)
[2018-02-28] MEDS ORDERED: amLODIPine 5 MG Tablet PO SCH (10:00)
[2018-02-28] MEDS ORDERED: Levothyroxine 50 MCG Tablet PO SCH (10:00)
[2018-02-28] MEDS ORDERED: Ferrous Sulfate 325 MG Tablet PO SCH (10:15)
[2018-02-28] MEDS ORDERED: Pantoprazole Sodium 20 MG DR Tablet PO SCH (10:15)
--- NOTE | 2018-02-28 10:32 | P.HPCA ---
History of Present Illness Primary Care Physician: Isaiah Salas MD Chief Complaint: Chest pain History of Present Illness: This is an 87-year-old male with history of CAD with a stent in 2001, hypertension, hyperlipidemia, diabetes, anemia, chronic kidney disease, esophageal strictures, and GERD that presents to ED with complaint of developing a discomfort beneath his rib cage along both sides about the same time that he was eating sugar coated peanuts. Was a sharp pain. Is a 9 out of 10. Within 50 minutes the discomfort he took sublingual nitroglycerin 3 and states the discomfort resolved within about 10 minutes afterwards. He was mildly nauseous. Denies having shortness of breath or diaphoresis. States it is not similar to the discomfort he had when needing a stent in 2001. States that that time as a crushing discomfort or shortness of breath and diaphoresis. This did not happen with this most recent episode. Denies recent illness. Denies fevers or chills. He follows Dr. Dennis of cardiology and last saw him in December. States he had a 2D echo and was told there was a look good. In speaking with Dr. Dennis, patient's last stress test was a chemical stress test was March 2016 and was nonischemic with EF of 54%. Patient has been a lifetime non-smoker. Family history of CAD. - Diagnosis (1) Chest pain (2) H/O heart artery stent (3) CAD (coronary artery disease) (4) Diabetes (5) Chronic kidney disease (6) Anemia (7) Hypertension (8) Hyperlipidemia (9) Hypothyroidism (10) History of esophageal stricture (11) GERD (gastroesophageal reflux disease) Review of Systems General: Patient denies fevers, chills, and recent travel. HEENT: Patient denies headache, sore throat, difficulty swallowing. Cardiovascular: Has the chest discomfort as mentioned above. Denies sensation of heart beating rapidly or irregularly. No syncope. Denies diaphoresis. Respiratory: Denies shortness of breath or inspirational chest discomfort. Denies coughing wheezing or hemoptysis. GI: He was mildly nauseated. Patient denies vomiting, diarrhea, abdominal pain , bloody stools. Musculoskeletal: Patient denies joint pain or edema. Denies calf pain or edema. Neurovascular: Patient denies numbness, tingling, weakness in extremities. Denies headache. Endocrine: Denies polyuria and polydipsia. Hematologic: Denies easy bruising. Skin: Denies rash or itching. PMFSH - History History Provided By: Patient - Medical History Medical History: Medical History (Last Updated 02/27/18 @ 19:44 by Kathrin Watters RN) Acute angina Bladder cancer Diabetes Gastritis Gout Hypercholesteremia Hypertension Prostate CA - Surgical History Surgical History: Surgical History (Last Updated 02/27/18 @ 19:44 by Kathrin Watters RN) History of cardiac cath - Tobacco History Second Hand Smoke Exposure: No Tobacco Use In Past 30 Days: No Smoking Status: Never smoker Tobacco Type: Cigarettes - Alcohol History How Often Do You Have a Drink Containing Alcohol: Monthly or less - Substance Use History Substance History: No History of Abuse - Travel History Recent Travel in the [place] Within the Last 8 Weeks: No Recent Travel Out of the Country Within the Last 8 Weeks: No - Immunization History Tetanus Immunization: >5 Years Hx Influenza Vaccine This Season: Yes Medications and Allergies Active Medications: Active Medications Amlodipine Besylate (Norvasc) 5 mg PO DAILY [facility] Last Admin: 02/28/18 09:47 Dose: 5 mg Aspirin (Ecotrin) 81 mg PO DAILY [facility] Atorvastatin Calcium (Lipitor) 80 mg PO DAILY [facility] Last Admin: 02/28/18 09:45 Dose: 80 mg Hydrochlorothiazide (Microzide) 12.5 mg PO DAILY [facility] Last Admin: 02/28/18 09:47 Dose: 12.5 mg Insulin Human Regular (Novolin R Correctional Sugar Inj) 0 units SQ ACHS [facility]; Protocol Isosorbide Mononitrate (Imdur) 30 mg PO DAILY [facility] Last Admin: 02/28/18 09:45 Dose: 30 mg Levothyroxine Sodium (Synthroid) 50 mcg PO DAILY@0600 [facility] Last Admin: 02/28/18 09:44 Dose: 50 mcg Losartan Potassium (Cozaar) 100 mg PO DAILY [facility] Last Admin: 02/28/18 09:44 Dose: 100 mg Non-Formulary Medication (Ferrous Gluconate) 240 mg PO DAILY [facility] Pantoprazole Sodium (Protonix) 20 mg PO DAILY [facility] Sodium Chloride (Ns Flush) 2 ml IV.FLUSH UNSCH PRN PRN Reason: FLUSH AFTER USING IV ACCESS Sodium Chloride (Ns Flush) 2 ml IV.FLUSH BID [facility] Last Admin: 02/28/18 09:43 Dose: 2 ml Sodium Chloride (Ns Flush) 2 ml IV.FLUSH PRN PRN PRN Reason: FLUSH AFTER USING IV ACCESS Allergies Allergy/AdvReac Type Severity Reaction Status Date / Time No Known Allergies Allergy Mild Weakness Uncoded 02/27/18 21:04 Home Medications Medication Instructions Recorded Confirmed Type allopurinol 300 mg PO DAILY 02/27/18 02/27/18 History aspirin [Aspir-81] 81 mg PO DAILY 02/27/18 02/27/18 History atorvastatin 80 mg PO DAILY 02/27/18 02/27/18 History calcitriol 0.25 mcg PO Q OTHER DAY 02/27/18 02/27/18 History ergocalciferol (vitamin D2) 50,000 unit PO QWEEK 02/27/18 02/27/18 History [Vitamin D2] ergocalciferol (vitamin D2) 50,000 unit PO QWEEK 02/27/18 02/27/18 History [Vitamin D2] ferrous gluconate 240 mg PO DAILY 02/27/18 02/27/18 History insulin degludec [Tresiba 200 unit DAILY 02/27/18 02/27/18 History FlexTouch U-200] isosorbide mononitrate 30 mg PO DAILY 02/27/18 02/27/18 History levothyroxine 50 mcg PO DAILY 02/27/18 02/27/18 History wunhsklfel-[id number]-plbomuhwb 1 tab PO DAILY 02/27/18 02/27/18 History pantoprazole [Protonix] 20 mg PO DAILY 02/27/18 02/27/18 History timolol maleate [Timoptic] 1 drp OPHTHALMIC (EYE) BID 02/27/18 02/27/18 History Exam Vital signs: Vital Signs 02/27/18 19:35 02/27/18 19:45 02/27/18 19:46 Temperature 98.7 F Pulse Rate 64 64 Respiratory Rate 20 Blood Pressure 151/65 H Pulse Oximetry 100 100 02/27/18 19:52 02/27/18 21:02 02/28/18 00:00 Temperature 97.7 F Pulse Rate 67 67 58 L Respiratory Rate 18 18 14 Blood Pressure 125/63 122/65 127/61 Pulse Oximetry 99 98 99 02/28/18 00:20 02/28/18 04:00 02/28/18 07:58 Temperature 97.7 F Pulse Rate 62 53 L 49 L Respiratory Rate 14 Blood Pressure 127/61 Pulse Oximetry 99 02/28/18 08:00 Temperature 97.6 F Pulse Rate 62 Respiratory Rate 16 Blood Pressure 170/81 H Pulse Oximetry 98 Intake & Output 02/27/18 02/28/18 02/28/18 18:59 06:59 18:59 Weight 63.957 kg Other: Post Void Residual 200 # Voids 2 Date of Last Bowel Movement 02/27/18 02/27/18 Narrative: GENERAL: This is a well-nourished, well-developed patient, in no apparent distress. Patient speaks in clear complete sentences. Patient is pleasant. HEENT: Head is atraumatic and normocephalic. Neck is supple without lymphadenopathy and trachea is midline. No JVD or carotid bruits. CARDIOVASCULAR: Regular rate and rhythm without murmurs, gallops, or rubs. RESPIRATORY: Clear to auscultation. Breath sounds equal bilaterally. No wheezes , rales, or rhonchi. Chest wall is nontender. No use of accessory muscles. GASTROINTESTINAL: Abdomen is nontender, nondistended. Abdomen soft. No obvious pulsatile mass or bruit. No CVA tenderness. Strong femoral pulses bilaterally. Normal bowel sounds in all quadrants. MUSCULOSKELETAL: Patient is moving upper and lower extremities freely. No calf tenderness or edema, no Homans sign. Strong pulses in upper and lower extremities. NEUROLOGICAL: Patient is alert and oriented. Cranial nerves 2-12 are grossly intact. No focal deficits and speech is clear. SKIN: No rash and turgor is normal. Results 02/27/18 19:58 02/27/18 19:58 Cardiac Enzymes 02/27/18 02/27/18 02/27/18 Range/Units 19:58 19:58 23:53 AST 46 H (15-37) U/L Troponin I Less than 0.02 L Less than 0.02 L (0.02-0.05) ng/mL B-Natriuretic Peptide 74 (0-100) pg/mL 02/28/18 Range/Units 02:25 AST (15-37) U/L Troponin I Less than 0.02 L (0.02-0.05) ng/mL B-Natriuretic Peptide (0-100) pg/mL Coagulation 02/27/18 02/27/18 Range/Units 19:58 19:58 PT 9.9 (9.8-11.6) sec APTT 26.1 (24.3-30.1) sec B-Natriuretic Peptide 74 (0-100) pg/mL CBC 02/27/18 Range/Units 19:58 WBC 5.5 (4.0-11.0) th/mm3 RBC 3.23 L (4.50-5.90) mil/mm3 Hgb 9.1 L (13.0-17.0) gm/dL Hct 28.3 L (39.0-51.0) % Plt Count 180 (150-450) th/mm3 Neut # (Auto) 3.1 (1.8-7.7) th/mm3 Lymph # (Auto) 1.5 (1.0-4.8) th/mm3 Steele # (Auto) 0.8 (0.0-0.9) th/mm3 Eos # (Auto) 0.0 (0.0-0.4) th/mm3 Baso # (Auto) 0.0 (0.0-0.2) th/mm3 Comprehensive Metabolic Panel 02/27/18 Range/Units 19:58 Sodium 141 (136-145) meq/L Potassium 3.9 (3.5-5.1) meq/L Chloride 109 H (98-107) meq/L Carbon Dioxide 20.6 L (21.0-32.0) meq/L BUN 42 H (7-18) mg/dL Creatinine 1.87 H (0.60-1.30) mg/dL Calcium 8.9 (8.5-10.1) mg/dL AST 46 H (15-37) U/L ALT 27 (12-78) U/L Alkaline Phosphatase 105 (45-117) U/L Total Protein 5.7 L (6.4-8.2) g/dL Albumin 2.5 L (3.4-5.0) g/dL Intake and Output 02/27/18 02/28/18 02/28/18 22:59 06:59 14:59 Other: Post Void Residual 200 # Voids 2 Date of Last Bowel Movement 02/27/18 02/27/18 Weight 63.957 kg 63.957 kg EKG interpretations - EKG EKG shows: bradycardia (EKGs have been sinus bradycardia with first-degree AV block. No significant ST segment depressions or elevations.) Caprini VTE Risk Assessment Caprini VTE Risk Assessment: Moderate/High Risk (score >= 2) Caprini Risk Assessment Model: Point Value = 1 Point Value = 2 Point Value = 3 Point Value = 5 Age 41-60 Minor surgery BMI > 25 kg/m2 Swollen legs Varicose veins or History of unexplained or recurrent spontaneous Oral contraceptives or hormone replacement Sepsis (< 1 month) Serious lung disease, including pneumonia (< 1 month) Abnormal pulmonary function Acute myocardial infarction Congestive heart failure (< 1 month) History of inflammatory bowel disease Medical patient at bed rest Age 61-74 Arthroscopic surgery Major open surgery (> 45 min) Laparoscopic surgery (> 45 min) Malignancy Confined to bed (> 72 hours) Immobilizing plaster cast Central venous access Age >= 75 History of VTE Family history of VTE Factor V Leiden Prothrombin [id number] Lupus anticoagulant Anticardiolipin antibodies Elevated serum homocysteine Heparin-induced thrombocytopenia Other congenital or acquired thrombophilia Stroke (< 1 month) Elective arthroplasty Hip, pelvis, or leg fracture Acute spinal cord injury (< 1 month) Prophylaxis Regimen: Total Risk Factor Score Risk Level Prophylaxis Regimen 0-1 Low Early ambulation 2 Moderate Order ONE of the following: *Sequential Compression Device (SCD) *Heparin 5000 units SQ BID 3-4 Higher Order ONE of the following medications: *Heparin 5000 units SQ TID *Enoxaparin/Lovenox 40 mg SQ daily (WT < 150 kg, CrCl > 30 mL/min) *Enoxaparin/Lovenox 30 mg SQ daily (WT < 150 kg, CrCl > 10-29 mL/min) *Enoxaparin/Lovenox 30 mg SQ BID (WT < 150 kg, CrCl > 30 mL/min) AND/OR *Sequential Compression Device (SCD) 5 or more Highest Order ONE of the following medications: *Heparin 5000 units SQ TID (Preferred with Epidurals) *Enoxaparin/Lovenox 40 mg SQ daily (WT < 150 kg, CrCl > 30 mL/min) *Enoxaparin/Lovenox 30 mg SQ daily (WT < 150 kg, CrCl > 10-29 mL/min) *Enoxaparin/Lovenox 30 mg SQ BID (WT < 150 kg, CrCl > 30 mL/min) AND *Sequential Compression Device (SCD) Assessment and Plan - Assessment (1) Chest pain Code(s): R07.9 - Chest pain, unspecified Status: Acute (2) H/O heart artery stent Code(s): Z95.5 - Presence of coronary angioplasty implant and graft Status: Acute (3) CAD (coronary artery disease) Code(s): I25.10 - Atherosclerotic heart disease of [place] coronary artery without angina pectoris Status: Acute (4) Diabetes Code(s): E11.9 - Type 2 diabetes mellitus without complications Status: Acute (5) Chronic kidney disease Code(s): N18.9 - Chronic kidney disease, unspecified Status: Acute (6) Anemia Code(s): D64.9 - Anemia, unspecified Status: Acute (7) Hypertension Code(s): I10 - Essential (primary) hypertension Status: Acute (8) Hyperlipidemia Code(s): E78.5 - Hyperlipidemia, unspecified Status: Acute (9) Hypothyroidism Code(s): E03.9 - Hypothyroidism, unspecified Status: Acute (10) History of esophageal stricture Code(s): Z87.19 - Personal history of other diseases of the digestive system Status: Acute (11) GERD (gastroesophageal reflux disease) Code(s): K21.9 - Gastro-esophageal reflux disease without esophagitis Status: Acute - Plan * Chest pain: Patient has had serial cardiac enzymes and EKGs for ruling out purposes. He will be seen by Dr. Bourgeois of cardiology in the chest pain center. Patient likely to have a Lexiscan and if that is nonischemic to be discharged home with instructions to follow-up with PCP and cardiology. * History of CAD with stent: This will likely be reassessed with stress testing. He will need to resume medication follow-up with his meal grinder tender. * Chronic kidney disease: Patient will need to continue follow-up with his shift foreman. * Anemia: Patient states is a chronic anemia and his shift foreman has him on medications for anemia. He will need continued follow-up. We will repeat a CBC. We will also attempt to check for blood in stool if he has a bowel movement. * Hypertension: Continue medication. * Hyperlipidemia: Continue medication. * Diabetes: Patient will be on sliding scale insulin coverage. He should follow diabetic diet. Resume medication at discharge. * GERD: Patient history of GERD as well as esophageal stricture. Continue medication and follow-up with his special investigator. Patient is stable at this time. He is agreeable to this plan. H&P: Quality - VTE Deep Vein Thrombosis/Pulmonary Embolism Present on Admission: No (1) Chest pain Qualifiers: Chest pain type: unspecified Qualified Code(s): R07.9 - Chest pain, unspecified
[2018-02-28 11:01] LABS: Hematocrit 33.9 % (39.0-51.0); Hemoglobin 11.1 gm/dL (13.0-17.0); Mean Corpuscular HGB Conc 32.8 % (32.0-36.0); Mean Corpuscular Hemoglobin 28.8 pg (27.0-34.0); Mean Corpuscular Volume 87.7 fL (80.0-100.0); Platelet Count 239 th/mm3 (150-450); Red Blood Count 3.87 mil/mm3 (4.50-5.90); Red Cell Distribution Width 17.1 % (11.6-17.2); White Blood Count 10.1 th/mm3 (4.0-11.0)
[2018-02-28] MEDS ORDERED: Insulin NovoLIN Regular Correctional Sugar Inj SQ SCH (12:00)
[2018-02-28] MEDS ORDERED: Regadenoson Inj 0.4 MG/5 ML Syringe IV.PUSH ONE (13:50)
--- NOTE | 2018-02-28 15:05 | NM ---
EXAM DATE: 02/28/2018 2:45 PM EDT AGE/SEX: 87 years / Male INDICATIONS:Coronary artery disease. Angina Chest pain. CLINICAL DATA: This is the patient's initial encounter. Patient reports that signs and symptoms have been present for 1 day and indicates a pain score of 9/10. MEDICAL/SURGICAL HISTORY: Carcinoma, bladder. Carcinoma, prostatic. Hypertension. . Cardiac c ath. COMPARISON: No prior exams available for comparison. No external comparison. DOSE: 8.5 mCi Tc 99m Myoview at rest 27.4 mCi [id number] at stress 0.4 mg Lexiscan STRESS SYMPTOMS: Headache. EJECTION FRACTION: 66 % TECHNIQUE: The patient underwent pharmacologic stress with infusion of prescribed dose. Continuous ECG tracing was monitored during stress. Gated SPECT imaging was performed after stress and conventi onal SPECT imaging was performed at rest. The examination was performed on a SPECT/CT scanner, both attenuation and non-corrected datasets were reviewed. FINDINGS: Distribution: The maximum perfused segment at stress is in the lateral wall. Perfusion Study: The pattern of perfusion at stress is within normal limits. Gated Study: There are intact wall motion and wall thickening without hypokinetic or dyskinetic segm ents. The ejection fraction is calculated at 66%. RISK CATEGORY: Low (<1% Annual Motality Rate) Unremarkable myocardial perfusion. Electronically signed by: Isaiah Malik MD 02/28/2018 3:04 PM EDT
--- NOTE | 2018-02-28 16:02 | TR ---
Date Performed: 02/28/2018 Time Performed: 13:46:41 DOCTOR: Tye Bourgeois DRUG LIST: CLINICAL HISTORY: REASON FOR TEST: REASON FOR ENDING: OBSERVATION: CONCLUSION: COMMENTS: Lexiscan stress test was performed under standard four minute protocol. Radionuclide was injected one minute prior to ending the test. No electrocardiographic abormalities were present t o suggest ischemia. Nuclear imaging and interpretation are pending.
--- NOTE | 2018-02-28 16:14 | ECG ---
Date Performed: 02/28/2018 Time Performed: 01:55:21 PTAGE: 87 years EKG: SINUS BRADYCARDIA WITH FIRST DEGREE AV BLOCK BORDERLINE LEFT AXIS DEVIATION ABNORMAL ECG IN TERPRETATION BASED ON A DEFAULT AGE OF 40 YEARS PREVIOUS TRACING : 02/27/2018 19.50 Since previous tracing, no significant change noted DOCTOR: Tye Bourgeois Interpretating Date/Time 02/28/2018 16:12:45
--- NOTE | 2018-02-28 16:15 | ECG ---
Date Performed: 02/28/2018 Time Performed: 00:28:53 PTAGE: 87 years EKG: SINUS BRADYCARDIA WITH FIRST DEGREE AV BLOCK BORDERLINE LEFT AXIS DEVIATION ABNORMAL ECG PREVIOUS TRACING : 02/27/2018 19.50 Since previous tracing, no significant change noted DOCTOR: Tye Bourgeois Interpretating Date/Time 02/28/2018 16:14:04
--- NOTE | 2018-02-28 16:29 | ECG ---
Date Performed: 02/27/2018 Time Performed: 19:50:14 PTAGE: 87 years EKG: Sinus rhythm WITH FIRST DEGREE AV BLOCK BORDERLINE LEFT AXIS DEVIATION ABNORMAL ECG Since PREVIOUS TRACING , no significant change noted DOCTOR: Tye Bourgeois Interpretating Date/Time 02/28/2018 16:27:47
== END 2018-02-28 16:27 | disposition home or self-care (01) ==
LOC: NEDA 19:22 → NEPC 19:22 → NEPHCDU 19:22 → MERGE 21:51 → NEPHCDU 23:48
PROVIDERS: ADMIT Internal Medicine Interventional Cardiology; ATTEND Internal Medicine Interventional Cardiology

== ENCOUNTER 2018-06-08 23:13 | Observation (INO) ==
[2018-06-08] MEDS ORDERED: Dextrose 10% in Water Inj 1,000 ML IV.CONT SCH (23:45)
[2018-06-09 00:01] LABS: Baso # (Auto) 0.1 th/mm3 (0.0-0.2); Baso % (Auto) 0.7 % (0.0-2.0); Eos % (Auto) 0.1 % (0.0-4.0); Hematocrit 38.4 % (39.0-51.0); Hemoglobin 12.3 gm/dL (13.0-17.0); Lymph % (Auto) 18.7 % (9.0-44.0); Mean Corpuscular Volume 90.9 fL (80.0-100.0); Mean Platelet Volume 10.9 fL (7.0-11.0); Mono % (Auto) 9.1 % (0.0-8.0); Neut # (Auto) 7.4 th/mm3 (1.8-7.7); Neut % (Auto) 71.4 % (16.0-70.0); Platelet Count 159 th/mm3 (150-450); Red Blood Count 4.22 mil/mm3 (4.50-5.90); Red Cell Distribution Width 16.3 % (11.6-17.2); White Blood Count 10.5 th/mm3 (4.0-11.0)
[2018-06-09] MEDS ORDERED: Pantoprazole Inj 40 MG Vial IV.PUSH ONE (00:02)
[2018-06-09 00:08] LABS: Potassium 3.1 meq/L (3.5-5.1)
[2018-06-09 00:10] LABS: Calcium 10.2 mg/dL (8.5-10.1)
[2018-06-09 00:11] LABS: Carbon Dioxide 25.5 meq/L (21.0-32.0)
--- NOTE | 2018-06-09 00:12 | ED ---
HPI General Chief complaint: Diabetic Stated complaint: Low blood sugar x 3 hrs Time Seen by Provider: 06/08/18 23:27 Source: patient and family Mode of arrival: ambulatory Limitations: no limitations History of Present Illness HPI narrative: Patient presents with hypoglycemia. Onset was tonight. He was feeling weak. EVAC was called and went to his house and checked her sugar and found it to be low at about 30. It was treated orally and improved. He elected to stay home at that time. However, his sugar has subsequently dropped again. In addition, he is complaining with significant dyspepsia and some mid to lower abdominal discomfort with associated burping. Onset (ago): hour(s) (3) Severity: mild Treatments prior to arrival: Reports other ([place] juice) Related Data Home Medications Medication Instructions Recorded Confirmed allopurinol 300 mg PO QPM 02/27/18 06/09/18 atorvastatin 80 mg PO QPM 02/27/18 06/09/18 calcitriol 0.25 mcg PO DAILY 02/27/18 06/09/18 ergocalciferol (vitamin D2) 50,000 unit PO QMONTH 02/27/18 06/09/18 [Vitamin D2] ferrous gluconate 240 mg PO DAILY 02/27/18 06/09/18 insulin degludec [Tresiba 30 unit DAILY 02/27/18 06/09/18 FlexTouch U-200] isosorbide mononitrate 30 mg PO DAILY 02/27/18 06/09/18 levothyroxine 50 mcg PO DAILY 02/27/18 06/09/18 [id number] 1 tab PO DAILY 02/27/18 06/09/18 timolol maleate [Timoptic] 1 drp EACH EYE DAILY 02/27/18 06/09/18 aspirin 81 mg PO DAILY 06/09/18 06/09/18 methylprednisolone 4 mg PO DAILY PRN 06/09/18 06/09/18 omeprazole 20 mg PO QPM 06/09/18 06/09/18 vit C-vit [id number]-[id number]-om-3 1 cap PO DAILY 06/09/18 06/09/18 [Ocuvite] Allergies Allergy/AdvReac Type Severity Reaction Status Date / Time No Known Allergies Allergy Verified 06/08/18 23:44 Review of Systems ROS: all other systems reviewed are negative PMFSH Medical History Medical History Acute angina (Acute) Bladder cancer (Acute) Diabetes (Acute) Gastritis (Acute) Gout (Acute) Hypercholesteremia (Acute) Hypertension (Acute) Prostate CA (Acute) Surgical History Surgical History History of cardiac cath (Acute) Social History Social History Substance History: No History of Abuse Second Hand Smoke Exposure: No Smoking Status: Never smoker Tobacco Type: Cigarettes How Often Do You Have a Drink Containing Alcohol: Monthly or less Recent Travel in [facility] within the Last 8 Weeks: No Immunization History Tetanus Immunization: <5 Years Exam Const General: cooperative, comfortable, well developed, frail appearing and other ( elderly) Orientation: alert, awake and oriented x3 HENMT Head: normal to inspection, normocephalic and atraumatic Mouth: moist mucous membranes Eyes Alignment and Position: alignment normal and position abnormal Conjunctivae: conjunctivae normal Sclera: sclerae normal EOM: EOM intact bilaterally Neck Neck: normal visual inspection and full ROM Chest Chest: normal inspection of the chest Resp Effort & Inspection: normal respiratory effort and able to speak in complete sentences Auscultation: clear to auscultation bilaterally Cardio Rate: regular rate Rhythm: regular rhythm GI Inspection: normal to inspection Palpation: soft and nontender Back/Spine/Pelvis Cervical Spine: cervical ROM normal Thoracic/Lumbar Spine: thoraco-lumbar ROM normal Skin General: no rashes or lesions noted, turgor normal and dry skin Neuro General: alert, awake, oriented x3, moves all extremities and CN's II-XI intact bilaterally Extrem General: normal to inspection and full ROM Psych Appearance: grossly normal Mental Status: mental status grossly normal Speech and Movement: speech and movement normal Mood: congruent mood Affect: normal affect Attitude: cooperative Thought Process: normal Thought Content: normal Judgment: judgment good Course Reevaluation(s) Reevaluation #1: Fingerstick blood sugar following about 40 minutes of IV D10 was 53. I have increased his D10 from 42 cc/h to 60 cc/h. His sugar will be checked again in about 30 minutes. Time: 01:00 Reevaluation #2: BGL about 100. Will hold steady with D10. Time: 01:35 Consultations Consultation #1: Dr. Cooper will admit to OBS and consult GI. Time: 02:14 Initial Documented Vital Signs Temperature 97.6 F 06/08/18 23:18 Pulse Rate 88 06/08/18 23:18 Respiratory Rate 12 06/08/18 23:18 Blood Pressure 179/101 H 06/08/18 23:18 Pulse Oximetry 95 06/08/18 23:18 Last Documented Vital Signs Temperature 97.6 F 06/08/18 23:18 Pulse Rate 80 06/09/18 02:31 Respiratory Rate 15 06/09/18 02:31 Blood Pressure 168/73 H 06/09/18 02:31 Pulse Oximetry 97 06/09/18 02:31 Critical Care Time Critical Care Time: Yes Total Critical Care Time: 45 Attestation: Time to perform other separately billable procedures was not included in the critical care time. My time did not include minutes spent treating any other patients simultaneously or on activities that did not directly contribute to the patient's treatment. The services I provided to this patient were to treat and/or prevent clinically significant deterioration due to hypoglycemia I provided critical care services requiring my management, as noted below: Chart data review, documentation time, medication orders and management, vital sign assessments/reviewing monitor data, ordering and reviewing lab tests, ordering and interpreting/reviewing x-rays and diagnostic studies, care of the patient and discussion of the patient with the admitting physicians Medical Decision Making MDM Narrative Medical decision making narrative: This patient presents with hypoglycemia. He is a diabetic on long-acting insulin. He and his family report no recent change in his insulin dosage. They report that he has been eating his usual amount. His daughter does state that his currently has the shingles and that he has been taking care of her. The patient has a history of GERD and esophageal strictures. He is having significant symptoms associated with that tonight. He is also complaining with some mid abdominal pain but has a soft, nontender abdomen. The patient has been unable to tolerate oral food or liquid. Therefore, an IV of D10 has been started. I will check his sugar frequently and adjust the D10 accordingly. Medical Screen Exam Complete: Yes Emergency Medical Condition: Yes Differential Diagnosis Differential Diagnosis: Differential diagnosis includes inadequate oral intake and appropriate insulin dosage Medical Records Medical records reviewed: Yes I reviewed the patient's medical records. Negative nuclear stress test in February. Medical history of diabetes, hypertension , hyperlipidemia, chronic kidney disease, hypothyroidism, prostate/bladder cancer and coronary artery disease status post a stent. Lab Data Result diagrams: 06/08/18 20:40 06/08/18 20:40 Lab Results 06/08/18 06/08/18 06/08/18 Range/Units 20:40 20:40 20:40 CBC w Diff Auto diff final WBC 10.5 (4.0-11.0) th/mm3 RBC 4.22 L (4.50-5.90) mil/mm3 Hgb 12.3 L (13.0-17.0) gm/dL Hct 38.4 L (39.0-51.0) % MCV 90.9 (80.0-100.0) fL MCH 29.0 (27.0-34.0) pg MCHC 32.0 (32.0-36.0) % RDW 16.3 (11.6-17.2) % Plt Count 159 (150-450) th/mm3 MPV 10.9 (7.0-11.0) fL Neut % (Auto) 71.4 H (16.0-70.0) % Lymph % (Auto) 18.7 (9.0-44.0) % [place] % (Auto) 9.1 H (0.0-8.0) % Eos % (Auto) 0.1 (0.0-4.0) % Baso % (Auto) 0.7 (0.0-2.0) % Neut # (Auto) 7.4 (1.8-7.7) th/mm3 Lymph # (Auto) 2.0 (1.0-4.8) th/mm3 [place] # (Auto) 1.0 H (0.0-0.9) th/mm3 Eos # (Auto) 0.0 (0.0-0.4) th/mm3 Baso # (Auto) 0.1 (0.0-0.2) th/mm3 WBC Differential . Differential Comment . Sodium 143 (136-145) meq/L Potassium 3.1 L (3.5-5.1) meq/L Chloride 108 H (98-107) meq/L Carbon Dioxide 25.5 (21.0-32.0) meq/L Anion Gap 10 (5-15) meq/L BUN 40 H (7-18) mg/dL Creatinine 1.50 H (0.60-1.30) mg/dL Estimated GFR 44 L (>89) mL/min POC Glucose (68-110) mg/dl Random Glucose 40 L* (74-106) mg/dL Calcium 10.2 H (8.5-10.1) mg/dL Magnesium 1.8 (1.5-2.5) mg/dL Troponin I (0.02-0.05) ng/mL 06/08/18 06/09/18 06/09/18 Range/Units 23:50 01:00 01:34 CBC w Diff WBC (4.0-11.0) th/mm3 RBC (4.50-5.90) mil/mm3 Hgb (13.0-17.0) gm/dL Hct (39.0-51.0) % MCV (80.0-100.0) fL MCH (27.0-34.0) pg MCHC (32.0-36.0) % RDW (11.6-17.2) % Plt Count (150-450) th/mm3 MPV (7.0-11.0) fL Neut % (Auto) (16.0-70.0) % Lymph % (Auto) (9.0-44.0) % [place] % (Auto) (0.0-8.0) % Eos % (Auto) (0.0-4.0) % Baso % (Auto) (0.0-2.0) % Neut # (Auto) (1.8-7.7) th/mm3 Lymph # (Auto) (1.0-4.8) th/mm3 [place] # (Auto) (0.0-0.9) th/mm3 Eos # (Auto) (0.0-0.4) th/mm3 Baso # (Auto) (0.0-0.2) th/mm3 WBC Differential Differential Comment Sodium (136-145) meq/L Potassium (3.5-5.1) meq/L Chloride (98-107) meq/L Carbon Dioxide (21.0-32.0) meq/L Anion Gap (5-15) meq/L BUN (7-18) mg/dL Creatinine (0.60-1.30) mg/dL Estimated GFR (>89) mL/min POC Glucose 53 L 103 (68-110) mg/dl Random Glucose (74-106) mg/dL Calcium (8.5-10.1) mg/dL Magnesium (1.5-2.5) mg/dL Troponin I Less than 0.02 L (0.02-0.05) ng/mL 06/09/18 06/09/18 Range/Units 02:26 04:35 CBC w Diff WBC (4.0-11.0) th/mm3 RBC (4.50-5.90) mil/mm3 Hgb (13.0-17.0) gm/dL Hct (39.0-51.0) % MCV (80.0-100.0) fL MCH (27.0-34.0) pg MCHC (32.0-36.0) % RDW (11.6-17.2) % Plt Count (150-450) th/mm3 MPV (7.0-11.0) fL Neut % (Auto) (16.0-70.0) % Lymph % (Auto) (9.0-44.0) % [place] % (Auto) (0.0-8.0) % Eos % (Auto) (0.0-4.0) % Baso % (Auto) (0.0-2.0) % Neut # (Auto) (1.8-7.7) th/mm3 Lymph # (Auto) (1.0-4.8) th/mm3 [place] # (Auto) (0.0-0.9) th/mm3 Eos # (Auto) (0.0-0.4) th/mm3 Baso # (Auto) (0.0-0.2) th/mm3 WBC Differential Differential Comment Sodium (136-145) meq/L Potassium (3.5-5.1) meq/L Chloride (98-107) meq/L Carbon Dioxide (21.0-32.0) meq/L Anion Gap (5-15) meq/L BUN (7-18) mg/dL Creatinine (0.60-1.30) mg/dL Estimated GFR (>89) mL/min POC Glucose 197 H 220 H (68-110) mg/dl Random Glucose (74-106) mg/dL Calcium (8.5-10.1) mg/dL Magnesium (1.5-2.5) mg/dL Troponin I (0.02-0.05) ng/mL Imaging Data Radiologist's impression: Abdomen X-Ray 06/09/18 00:04 CONCLUSION: Markedly dilated stomach ECG Data EKG Prior to Arrival: No Attestation: I personally reviewed and interpreted this ECG as follows: (EKG shows a sinus rhythm with a rate of 63. No acute STT wave changes.) Prior ECG tracings: available for review (No change from previous.) Discharge Plan Discharge Disposition Patient Disposition: 30 Still Patient Discharge Details Diagnosis: Hypoglycemia associated with diabetes, Dyspepsia, Acute gastric dilatation Physicians Team ED Provider: Nayla Gil Primary Care Provider: Isaiah Salas Attending Provider: Silvia Cooper ED Status: Left Department Discharge Information Discharge Date/Time: 06/09/18 03:15
[2018-06-09] MEDS: Potassium Chlor 10 mEq Premix 10 MEQ/100 ML PIGGYBACK IV.SIG SCH ×6 (00:48→06:30)
--- NOTE | 2018-06-09 00:53 | XR ---
EXAM DATE: 06/09/2018 12:48 AM EDT AGE/SEX: 87 years / Male INDICATIONS: Bilateral lower quadrant pain, nausea, belching. CLINICAL DATA: This is the patient's initial encounter. Patient reports that signs and symptoms have been present for 1 day and indicates a pain score of 4/10. MEDICAL/SURGICAL HISTORY: Carcinoma, bladder. Carcinoma, prostatic. Hypertension. Gastritis. Acute angina. None. COMPARISON: [facility], CT ABDOMEN AND PELVIS W/O CONTRAST, 01/04/2018. . FINDINGS: The stomach appears to be markedly dilated with fluid and air. A large hiatal hernia is present. Larg e and small bowel loops appear to be grossly normal in caliber. There are vascular calcifications pre sent. Fiducials over the prostate. Degenerative changes in the spine and hips. CONCLUSION: Markedly dilated stomach Electronically signed by: Chase Dang MD 06/09/2018 12:52 AM EDT
[2018-06-09] MEDS ORDERED: Dextrose 10% in Water Inj 1,000 ML IV.CONT SCH (01:15)
[2018-06-09] MEDS ORDERED: Bisacodyl 10 MG Supp RECTAL PRN (02:07)
[2018-06-09] MEDS ORDERED: Dextrose 50% in Water 50 ML Vial IV.PUSH PRN (02:07)
[2018-06-09] MEDS: Dextrose 10% in Water Inj 1,000 ML IV.CONT SCH (02:29)
[2018-06-09] MEDS: Levothyroxine 50 MCG Tablet PO SCH (06:28)
[2018-06-09] MEDS: Isosorbide Mononitrate 30 MG ER 24HR Tablet (Imdur) PO SCH (06:29)
[2018-06-09] MEDS ORDERED: TRIBENZOR PO SCH (09:00)
[2018-06-09] MEDS: Ferrrous Sulfate 300 MG/5 ML UDC PO SCH (09:08)
[2018-06-09] MEDS: Calcitriol 0.25 MCG Capsule PO SCH (09:09)
[2018-06-09] MEDS: Vitamins A,C,E/Lutein/Minerals Tablet PO SCH (09:09)
[2018-06-09] MEDS: Senna/Docusate Sodium 8.6/50 MG Tablet PO SCH ×2 (10:07→21:22)
--- NOTE | 2018-06-09 11:12 | XR ---
EXAM DATE: 06/09/2018 11:00 AM EDT AGE/SEX: 87 years / Male INDICATIONS: CHF, nausea CLINICAL DATA: This is the patient's subsequent encounter. Patient reports that signs and symptoms h ave been present for 2 days and indicates a pain score of 0/10. MEDICAL/SURGICAL HISTORY: . Carcinoma, bladder. Carcinoma, prostatic. Hypertension. Gastritis. Acute angina None. COMPARISON: [facility], CHEST 1V SINGLE AP, 02/27/2018. . FINDINGS: Single AP view the chest. Large hiatal hernia is seen with gas-filled distended stomach in the left l ower hemithorax. There is elevation of the left hemidiaphragm. Mild atelectasis at the left lung base again seen. Lungs otherwise clear. No evidence of pleural effusion or pneumothorax. Cardiac silhouet te within normal limits. CONCLUSION: Large hiatal hernia and elevation of left hemidiaphragm again seen. Mild left lung base atelectasis u nchanged. Electronically signed by: Grant Martin MD 06/09/2018 11:11 AM EDT
--- NOTE | 2018-06-09 12:19 | P.HP ---
History of Present Illness Primary Care Physician: Isaiah Salas MD Chief Complaint: Weakness and nausea History of Present Illness: This is a 87-year-old male with a history of diabetes mellitus on Tresiba, coronary artery disease status post stent, gastritis, GERD and esophageal stricture status post dilatation, gout, hyperlipidemia, hypertension, bladder cancer status post surgery and radiation therapy, prostate cancer status post surgery and kidney cancer status post ablation. Patient presents with weakness and nausea secondary to hypoglycemia. He checked his sugar it was low at 30. EMS was called and was treated but had persistent hypoglycemia. Patient states that he has decreased oral intake secondary to his stomach bothering him reports of gas discomfort. No nausea, UTI symptoms, constipation and diarrhea. He was started on D10 overnight currently at 30 cc an hour with resolved hypoglycemia however oral intake is suboptimal. Abdominal x-ray shows markedly dilated stomach denies history of gastroparesis he has no pain but has epigastric tenderness. All other systems reviewed negative Review of Systems All other systems reviewed negative except as stated in HPI PMFSH - History History Provided By: Patient - Medical History Medical History: Medical History (Last Reviewed 06/09/18 @ 15:00 by Ray Ponce MD) Acute angina Bladder cancer Diabetes Gastritis Gout Hypercholesteremia Hypertension Prostate CA - Surgical History Surgical History: Surgical History (Last Reviewed 06/09/18 @ 15:00 by Ray Ponce MD) History of cardiac cath - Family History Family History: Family History (Last Updated 06/09/18 @ 15:00 by Ray Ponce MD) Other Family history of diabetes mellitus - Social History I have reviewed the patient's Social History: Yes - Tobacco History Second Hand Smoke Exposure: No Smoking Status: Never smoker Tobacco Type: Cigarettes - Alcohol History How Often Do You Have a Drink Containing Alcohol: Monthly or less - Substance Use History Substance History: No History of Abuse - Travel History Recent Travel in the [facility] Within the Last 8 Weeks: No - Immunization History Tetanus Immunization: <5 Years Hx Influenza Vaccine This Season: Yes Medications and Allergies Active Medications: Active Medications Allopurinol (Zyloprim) 300 mg PO QPM [facility] Aspirin (Ecotrin) 81 mg PO DAILY [facility] Last Admin: 06/09/18 09:09 Dose: 81 mg Atorvastatin Calcium (Lipitor) 80 mg PO QPM [facility] Bisacodyl (Dulcolax Supp) 10 mg RECTAL DAILY PRN PRN Reason: SEVERE CONSITIPATION Calcitriol (Rocaltrol) 0.25 mcg PO DAILY [facility] Last Admin: 06/09/18 09:09 Dose: 0.25 mcg Dextrose (D50w Vial) 50 ml IV.PUSH UNSCH PRN PRN Reason: PER HYPOGLYCEMIA PROTOCOL Ferrous Sulfate (Ferrrous Sulfate Liq) 240 mg PO DAILY [facility] Last Admin: 06/09/18 09:08 Dose: 240 mg Glucagon (Glucagon Inj) 1 mg OTHER PRN PRN PRN Reason: for Hypoglycemia Protocol Dextrose (D10w Inj) 1,000 mls @ 30 mls/hr IV.CONT .Q24H [facility] Last Infusion: 06/09/18 03:11 Dose: 30 mls/hr Isosorbide Mononitrate (Imdur) 30 mg PO DAILY@0700 [facility] Last Admin: 06/09/18 06:29 Dose: 30 mg Lactulose (Lactulose Liq) 30 ml PO DAILY PRN PRN Reason: SEVERE CONSITIPATION Levothyroxine Sodium (Synthroid) 50 mcg PO DAILY@0700 [facility] Last Admin: 06/09/18 06:28 Dose: 50 mcg Metoclopramide HCl (Reglan Inj) 10 mg IV.PUSH Q8H [facility]; Protocol Last Admin: 06/09/18 11:20 Dose: 10 mg Multivitamins/Minerals (Ocuvite With Lutein) 1 tab PO DAILY [facility] Last Admin: 06/09/18 09:09 Dose: 1 tab Ondansetron HCl (Zofran Inj) 4 mg IV.PUSH Q6H PRN PRN Reason: NAUSEA OR VOMITING Pantoprazole Sodium (Protonix) 20 mg PO QPM [facility] Pt Own Tribenzor 40/ (5/12.5 Mg) 0 each PO DAILY [facility] Senna/Docusate Sodium (Gloria-Colace) 1 tab PO BID [facility] Last Admin: 06/09/18 10:07 Dose: Not Given Sennosides (Senokot) 17.2 mg PO Q12H PRN PRN Reason: Moderate Constipation Sodium Chloride (Ns Flush) 2 ml IV.FLUSH PRN PRN PRN Reason: FLUSH AFTER USING IV ACCESS Last Admin: 06/09/18 00:07 Dose: 2 ml Timolol Maleate (Timoptic 0.5% Drops) 1 drops EACH EYE DAILY [facility] Allergies Allergy/AdvReac Type Severity Reaction Status Date / Time No Known Allergies Allergy Verified 06/08/18 23:44 Home Medications Medication Instructions Recorded Confirmed Type allopurinol 300 mg PO QPM 02/27/18 06/09/18 History atorvastatin 80 mg PO QPM 02/27/18 06/09/18 History calcitriol 0.25 mcg PO DAILY 02/27/18 06/09/18 History ergocalciferol (vitamin D2) 50,000 unit PO QMONTH 02/27/18 06/09/18 History [Vitamin D2] ferrous gluconate 240 mg PO DAILY 02/27/18 06/09/18 History insulin degludec [Tresiba 30 unit DAILY 02/27/18 06/09/18 History FlexTouch U-200] isosorbide mononitrate 30 mg PO DAILY 02/27/18 06/09/18 History levothyroxine 50 mcg PO DAILY 02/27/18 06/09/18 History [id number] 1 tab PO DAILY 02/27/18 06/09/18 History timolol maleate [Timoptic] 1 drp EACH EYE DAILY 02/27/18 06/09/18 History aspirin 81 mg PO DAILY 06/09/18 06/09/18 History methylprednisolone 4 mg PO DAILY PRN 06/09/18 06/09/18 History omeprazole 20 mg PO QPM 06/09/18 06/09/18 History vit C-vit [id number] 1 cap PO DAILY 06/09/18 06/09/18 History [Ocuvite] Exam Vital signs: Vital Signs 06/08/18 23:18 06/09/18 01:03 06/09/18 02:31 Temperature 97.6 F Pulse Rate 88 66 80 Respiratory Rate 12 20 15 Blood Pressure 179/101 H 177/84 H 168/73 H Pulse Oximetry 95 96 97 06/09/18 03:30 06/09/18 08:00 Temperature 97.7 F 97.6 F Pulse Rate 88 69 Respiratory Rate 20 19 Blood Pressure 163/73 H 167/72 H Pulse Oximetry 97 96 Intake & Output 06/08/18 06/09/18 06/09/18 18:59 06:59 18:59 Intake Total 587 / 587 Output Total 100 / 100 Balance 487 / 487 Weight 68 kg Intake: IV 587 / 587 D10W Inj 1,000 ML @ 30 mls/hr 119 / 119 IV.CONT .Q24H [facility] Rx#: [id number] KCl 10 mEq Premix Inj 10 meq In 468 / 468 100 ml @ 100 mls/hr IV.SIG Q1H [facility] Rx#:[id number] Output: Emesis 100 / 100 Other: Date of Last Bowel Movement 06/09/18 06/09/18 # Emeses 1 Weight On Admission 68 kg Narrative: GENERAL: Well-developed, well-nourished in no distress SKIN: Warm and dry. HEAD: Atraumatic. Normocephalic. EYES: Pupils equal and round. No scleral icterus. No injection or drainage. ENT: No nasal bleeding or discharge. Mucous membranes pink and moist. NECK: Trachea midline. No JVD. CARDIOVASCULAR: Regular rate and rhythm. RESPIRATORY: No accessory muscle use. Crackle left base corresponding to atelectasis on chest x-ray. Breath sounds equal bilaterally. GASTROINTESTINAL: Abdomen soft, slight epigastric tenderness nondistended. MUSCULOSKELETAL: Extremities without clubbing, cyanosis, or edema. No obvious deformities. NEUROLOGICAL: Awake and alert. No obvious cranial nerve deficits. Motor grossly within normal limits. Five out of 5 muscle strength in the arms and legs. Normal speech. PSYCHIATRIC: Appropriate mood and affect; insight and judgment normal. Results - Labs CBC & Chem 7: 06/09/18 12:39 06/09/18 10:00 Labs: Laboratory Results - last 24 hr 06/08/18 06/08/18 06/08/18 20:40 20:40 20:40 CBC w Diff Auto diff final WBC 10.5 RBC 4.22 L Hgb 12.3 L Hct 38.4 L MCV 90.9 MCH 29.0 MCHC 32.0 RDW 16.3 Plt Count 159 MPV 10.9 Neut % (Auto) 71.4 H Lymph % (Auto) 18.7 Barnes % (Auto) 9.1 H Eos % (Auto) 0.1 Baso % (Auto) 0.7 Neut # (Auto) 7.4 Lymph # (Auto) 2.0 Barnes # (Auto) 1.0 H Eos # (Auto) 0.0 Baso # (Auto) 0.1 WBC Differential . Differential Comment . Sodium 143 Potassium 3.1 L Chloride 108 H Carbon Dioxide 25.5 Anion Gap 10 BUN 40 H Creatinine 1.50 H Estimated GFR 44 L POC Glucose Random Glucose 40 L* Calcium 10.2 H Magnesium 1.8 Troponin I 06/08/18 06/09/18 06/09/18 23:50 01:00 01:34 CBC w Diff WBC RBC Hgb Hct MCV MCH MCHC RDW Plt Count MPV Neut % (Auto) Lymph % (Auto) Barnes % (Auto) Eos % (Auto) Baso % (Auto) Neut # (Auto) Lymph # (Auto) Barnes # (Auto) Eos # (Auto) Baso # (Auto) WBC Differential Differential Comment Sodium Potassium Chloride Carbon Dioxide Anion Gap BUN Creatinine Estimated GFR POC Glucose 53 L 103 Random Glucose Calcium Magnesium Troponin I Less than 0.02 L 06/09/18 06/09/18 06/09/18 02:26 04:35 06:33 CBC w Diff WBC RBC Hgb Hct MCV MCH MCHC RDW Plt Count MPV Neut % (Auto) Lymph % (Auto) Barnes % (Auto) Eos % (Auto) Baso % (Auto) Neut # (Auto) Lymph # (Auto) Barnes # (Auto) Eos # (Auto) Baso # (Auto) WBC Differential Differential Comment Sodium Potassium Chloride Carbon Dioxide Anion Gap BUN Creatinine Estimated GFR POC Glucose 197 H 220 H 213 H Random Glucose Calcium Magnesium Troponin I 06/09/18 06/09/18 06/09/18 08:35 10:00 10:29 CBC w Diff WBC RBC Hgb Hct MCV MCH MCHC RDW Plt Count MPV Neut % (Auto) Lymph % (Auto) Barnes % (Auto) Eos % (Auto) Baso % (Auto) Neut # (Auto) Lymph # (Auto) Barnes # (Auto) Eos # (Auto) Baso # (Auto) WBC Differential Differential Comment Sodium Potassium Chloride Carbon Dioxide Anion Gap BUN Creatinine Estimated GFR POC Glucose 238 H 192 H Random Glucose Calcium Magnesium 1.6 Troponin I - Imaging Impressions Chest X-Ray 06/09/18 00:00 CONCLUSION: Large hiatal hernia and elevation of left hemidiaphragm again seen. Mild left lung base atelectasis unchanged. Abdomen X-Ray 06/09/18 00:04 CONCLUSION: Markedly dilated stomach Caprini VTE Risk Assessment Caprini VTE Risk Assessment: Moderate/High Risk (score >= 2) Caprini Risk Assessment Model: Point Value = 1 Point Value = 2 Point Value = 3 Point Value = 5 Age 41-60 Minor surgery BMI > 25 kg/m2 Swollen legs Varicose veins or History of unexplained or recurrent spontaneous Oral contraceptives or hormone replacement Sepsis (< 1 month) Serious lung disease, including pneumonia (< 1 month) Abnormal pulmonary function Acute myocardial infarction Congestive heart failure (< 1 month) History of inflammatory bowel disease Medical patient at bed rest Age 61-74 Arthroscopic surgery Major open surgery (> 45 min) Laparoscopic surgery (> 45 min) Malignancy Confined to bed (> 72 hours) Immobilizing plaster cast Central venous access Age >= 75 History of VTE Family history of VTE Factor V Leiden Prothrombin [id number] Lupus anticoagulant Anticardiolipin antibodies Elevated serum homocysteine Heparin-induced thrombocytopenia Other congenital or acquired thrombophilia Stroke (< 1 month) Elective arthroplasty Hip, pelvis, or leg fracture Acute spinal cord injury (< 1 month) Prophylaxis Regimen: Total Risk Factor Score Risk Level Prophylaxis Regimen 0-1 Low Early ambulation 2 Moderate Order ONE of the following: *Sequential Compression Device (SCD) *Heparin 5000 units SQ BID 3-4 Higher Order ONE of the following medications: *Heparin 5000 units SQ TID *Enoxaparin/Lovenox 40 mg SQ daily (WT < 150 kg, CrCl > 30 mL/min) *Enoxaparin/Lovenox 30 mg SQ daily (WT < 150 kg, CrCl > 10-29 mL/min) *Enoxaparin/Lovenox 30 mg SQ BID (WT < 150 kg, CrCl > 30 mL/min) AND/OR *Sequential Compression Device (SCD) 5 or more Highest Order ONE of the following medications: *Heparin 5000 units SQ TID (Preferred with Epidurals) *Enoxaparin/Lovenox 40 mg SQ daily (WT < 150 kg, CrCl > 30 mL/min) *Enoxaparin/Lovenox 30 mg SQ daily (WT < 150 kg, CrCl > 10-29 mL/min) *Enoxaparin/Lovenox 30 mg SQ BID (WT < 150 kg, CrCl > 30 mL/min) AND *Sequential Compression Device (SCD) Assessment and Plan - Plan This is a 87-year-old male with a history of diabetes mellitus on Tresiba, coronary artery disease status post stent, gastritis, GERD and esophageal stricture status post dilatation, gout, hyperlipidemia, hypertension, bladder cancer status post surgery and radiation therapy, prostate cancer status post surgery and kidney cancer status post ablation. Patient presents persistent hypoglycemia related to decreased oral intake on insulin therapy. Persistent hypoglycemia history of insulin requiring diabetes mellitus latest A1c 6.9. Will hold long-acting insulin for now and continue hypoglycemia protocol with frequent glucose monitoring to every 2 hours. Will discontinue D10 if oral intake is improved Dilated stomach Suspect Gatroparesis. Obtain gastric emptying study and continue Reglan CKD stage III with hypokalemia. Nonoliguric. Replace potassium DVT with SCD and SQ Heparin Discharge Planning: Possible discharge tomorrow
[2018-06-09 12:23] LABS: Calcium 9.3 mg/dL (8.5-10.1); Carbon Dioxide 26.5 meq/L (21.0-32.0); Potassium 4.3 meq/L (3.5-5.1)
[2018-06-09 12:48] LABS: Baso % (Auto) 0.1 % (0.0-2.0); Eos % (Auto) 0.2 % (0.0-4.0); Hematocrit 33.5 % (39.0-51.0); Hemoglobin 10.6 gm/dL (13.0-17.0); Lymph # (Auto) 1.3 th/mm3 (1.0-4.8); Lymph % (Auto) 12.3 % (9.0-44.0); Mean Corpuscular HGB Conc 31.8 % (32.0-36.0); Mean Corpuscular Hemoglobin 28.6 pg (27.0-34.0); Mean Platelet Volume 10.5 fL (7.0-11.0); Mono # (Auto) 1.3 th/mm3 (0.0-0.9); Mono % (Auto) 12.5 % (0.0-8.0); Neut % (Auto) 74.9 % (16.0-70.0); Platelet Count 140 th/mm3 (150-450); Red Blood Count 3.72 mil/mm3 (4.50-5.90); Red Cell Distribution Width 15.9 % (11.6-17.2); White Blood Count 10.6 th/mm3 (4.0-11.0)
[2018-06-09 13:07] LABS: Bilirubin,Urine Negative (Negative); Clarity,Urine Clear (Clear); Color,Urine Yellow (Yellw/Straw); Glucose,Urine (UA) 250 mg/dL (Negative); Leukocyte Esterase,Urine Negative (Negative); Nitrite,Urine Negative (Negative); PH,Urine 5.5 (5.0-8.5); Urobilinogen,Urine 0.2 mg/dL (Less than 2)
[2018-06-09 13:15] LABS: Squamous Epithelial Cell,Urine 0-5 /hpf (0-5); WBC,Urine 0-5 /hpf (0-5)
--- NOTE | 2018-06-09 15:05 | P.DCO ---
- Diagnosis (1) Acute gastric dilatation Status: Acute - Physical Therapy Order: Evaluate and treat, Improve ambulation, Strength and gait training - Home Health Nursing Order: Medical education, Diabetic education, Medication education-adverse effect, Nursing assessment with vital signs - Case Management Consult Yes - Certification I have seen patient Vishal Leslie on 06/09/18. My clinical findings support the need for the requested home health care services because: Patient has SOB, Deconditioned with increased weakness I certify that my clinical findings support that this patient is homebound because: Unsafe to leave home unassisted, Need for psychosocial assistance
[2018-06-09] MEDS ORDERED: Pantoprazole Sodium 20 MG DR Tablet PO SCH (18:00)
[2018-06-09] MEDS ORDERED: Allopurinol 300 MG Tablet PO SCH (18:00)
[2018-06-09] MEDS: Timolol 0.5% Drops 5 ML Bottle EACH EYE SCH (18:36)
[2018-06-09] MEDS: Heparin - SQ 10,000 UNITS/ML Vial SQ SCH (21:22)
[2018-06-10] MEDS: Dextrose 10% in Water Inj 1,000 ML IV.CONT SCH (02:30)
[2018-06-10 05:05] VITALS: O2SAT 93
[2018-06-10 06:34] LABS: Baso % (Auto) 0.2 % (0.0-2.0); Chloride 106 meq/L (98-107); Eos % (Auto) 0.7 % (0.0-4.0); Hematocrit 32.2 % (39.0-51.0); Hemoglobin 10.4 gm/dL (13.0-17.0); Lymph # (Auto) 1.8 th/mm3 (1.0-4.8); Lymph % (Auto) 25.4 % (9.0-44.0); Mean Corpuscular HGB Conc 32.2 % (32.0-36.0); Mean Platelet Volume 11.1 fL (7.0-11.0); Mono % (Auto) 13.5 % (0.0-8.0); Neut # (Auto) 4.2 th/mm3 (1.8-7.7); Neut % (Auto) 60.2 % (16.0-70.0); Platelet Count 124 th/mm3 (150-450); Potassium 4.4 meq/L (3.5-5.1); Red Blood Count 3.58 mil/mm3 (4.50-5.90); Red Cell Distribution Width 16.3 % (11.6-17.2); Sodium 140 meq/L (136-145)
[2018-06-10 06:39] LABS: Albumin 2.5 g/dL (3.4-5.0); Anion Gap 7 meq/L (5-15); Calcium 9.5 mg/dL (8.5-10.1); Carbon Dioxide 27.1 meq/L (21.0-32.0)
[2018-06-10 07:51] LABS: Alanine Aminotransferase 19 U/L (12-78); Alkaline Phosphatase 65 U/L (45-117); Aspartate Aminotransferase 20 U/L (15-37); Blood Urea Nitrogen 28 mg/dL (7-18); Glomerular Filtration Rate 63 mL/min (>89); Glucose,Random 110 mg/dL (74-106); Total Protein 5.1 g/dL (6.4-8.2)
[2018-06-10] MEDS: Vitamins A,C,E/Lutein/Minerals Tablet PO SCH (09:06)
[2018-06-10] MEDS: Ferrrous Sulfate 300 MG/5 ML UDC PO SCH (09:06)
[2018-06-10] MEDS: Calcitriol 0.25 MCG Capsule PO SCH (09:06)
[2018-06-10] MEDS: Heparin - SQ 10,000 UNITS/ML Vial SQ SCH (09:06)
[2018-06-10] MEDS: Levothyroxine 50 MCG Tablet PO SCH (09:10)
[2018-06-10] MEDS: Senna/Docusate Sodium 8.6/50 MG Tablet PO SCH (09:10)
[2018-06-10] MEDS: Isosorbide Mononitrate 30 MG ER 24HR Tablet (Imdur) PO SCH (09:10)
[2018-06-10 09:50] VITALS: BP 146/65; PULSE 70; RESP 32
--- NOTE | 2018-06-10 09:59 | P.PN ---
Subjective Interval history: Follow-up hypoglycemia. Stable fingersticks no more episodes of hyperglycemia off D10 since yesterday noon time. Denies nausea and abdominal pain. Wants to go home today and will have gastric emptying study outpatient since it cannot be done until tomorrow Physical Exam Vital signs: Vital Signs 06/09/18 12:00 06/09/18 12:57 06/09/18 16:00 Temperature 97.6 F Pulse Rate 72 68 65 Respiratory Rate 42 H 37 H 24 Blood Pressure 141/63 H 131/58 L Pulse Oximetry 98 06/09/18 20:00 06/10/18 00:00 06/10/18 04:00 Temperature 99.1 F 98.7 F 93 F L Pulse Rate 68 61 93 H Respiratory Rate 20 22 Blood Pressure 135/60 115/51 L 125/58 L Pulse Oximetry 25 L 61 L 93 L 06/10/18 08:00 Temperature 97.8 F Pulse Rate 70 Respiratory Rate 32 H Blood Pressure 146/65 H Pulse Oximetry Intake & Output 06/09/18 06/10/18 06/10/18 19:59 06:59 18:59 Intake Total Output Total Balance Weight Intake: IV D10W Inj 1,000 ML @ 30 mls/hr IV.CONT .Q24H [facility] Rx#: [id number] Oral Output: Urine Emesis Other: Date of Last Bowel Movement # Bowel Movements # Emeses Narrative: GENERAL: Well-developed, well-nourished in no distress SKIN: Warm and dry. CARDIOVASCULAR: Regular rate and rhythm. RESPIRATORY: No accessory muscle use. Crackle left base corresponding to atelectasis on chest x-ray. Breath sounds equal bilaterally. GASTROINTESTINAL: Abdomen soft, slight epigastric tenderness nondistended. MUSCULOSKELETAL: Extremities without clubbing, cyanosis, or edema. No obvious deformities. NEUROLOGICAL: Awake and alert. No obvious cranial nerve deficits. Motor grossly within normal limits. Five out of 5 muscle strength in the arms and legs. Normal speech. PSYCHIATRIC: Appropriate mood and affect; insight and judgment normal. Results - Labs CBC & Chem 7: 06/10/18 06:12 06/10/18 06:12 Laboratory Results - last 24 hr 06/09/18 06/09/18 06/09/18 10:00 12:27 12:30 CBC w Diff WBC RBC Hgb Hct MCV MCH MCHC RDW Plt Count MPV Neut % (Auto) Lymph % (Auto) Lares % (Auto) Eos % (Auto) Baso % (Auto) Neut # (Auto) Lymph # (Auto) Lares # (Auto) Eos # (Auto) Baso # (Auto) WBC Differential Differential Comment Sodium 140 Potassium 4.3 D Chloride 105 Carbon Dioxide 26.5 Anion Gap 9 BUN 37 H Creatinine 1.40 H Estimated GFR 48 L POC Glucose 227 H Random Glucose 212 H D Calcium 9.3 D Total Bilirubin AST ALT Alkaline Phosphatase B-Natriuretic Peptide Total Protein Albumin Ur Collection Type Clean catch Urine Color Yellow Urine Clarity Clear Urine pH 5.5 Ur Specific [place] 1.010 Urine Protein Negative Urine Glucose (UA) 250 H Urine Ketones Negative Urine Occult Blood Negative Urine Nitrate Negative Urine Bilirubin Negative Urine Urobilinogen 0.2 Ur Leukocyte Esterase Negative Urine WBC 0-5 Ur Squamous Epith Cells 0-5 Micro UA Comment Culture not ind Ur Microscopic Review Microscopic reviewed Urine Culture Comments Culture not ind 06/09/18 06/09/18 06/09/18 12:39 12:39 14:53 CBC w Diff Auto diff final WBC 10.6 RBC 3.72 L Hgb 10.6 L Hct 33.5 L MCV 90.0 MCH 28.6 MCHC 31.8 L RDW 15.9 Plt Count 140 L MPV 10.5 Neut % (Auto) 74.9 H Lymph % (Auto) 12.3 Lares % (Auto) 12.5 H Eos % (Auto) 0.2 Baso % (Auto) 0.1 Neut # (Auto) 8.0 H Lymph # (Auto) 1.3 Lares # (Auto) 1.3 H Eos # (Auto) 0.0 Baso # (Auto) 0.0 WBC Differential . Differential Comment . Sodium Potassium Chloride Carbon Dioxide Anion Gap BUN Creatinine Estimated GFR POC Glucose 215 H Random Glucose Calcium Total Bilirubin AST ALT Alkaline Phosphatase B-Natriuretic Peptide 118 H Total Protein Albumin Ur Collection Type Urine Color Urine Clarity Urine pH Ur Specific [place] Urine Protein Urine Glucose (UA) Urine Ketones Urine Occult Blood Urine Nitrate Urine Bilirubin Urine Urobilinogen Ur Leukocyte Esterase Urine WBC Ur Squamous Epith Cells Micro UA Comment Ur Microscopic Review Urine Culture Comments 06/09/18 06/09/18 06/09/18 16:35 18:57 20:14 CBC w Diff WBC RBC Hgb Hct MCV MCH MCHC RDW Plt Count MPV Neut % (Auto) Lymph % (Auto) Lares % (Auto) Eos % (Auto) Baso % (Auto) Neut # (Auto) Lymph # (Auto) Lares # (Auto) Eos # (Auto) Baso # (Auto) WBC Differential Differential Comment Sodium Potassium Chloride Carbon Dioxide Anion Gap BUN Creatinine Estimated GFR POC Glucose 191 H 230 H 187 H Random Glucose Calcium Total Bilirubin AST ALT Alkaline Phosphatase B-Natriuretic Peptide Total Protein Albumin Ur Collection Type Urine Color Urine Clarity Urine pH Ur Specific [place] Urine Protein Urine Glucose (UA) Urine Ketones Urine Occult Blood Urine Nitrate Urine Bilirubin Urine Urobilinogen Ur Leukocyte Esterase Urine WBC Ur Squamous Epith Cells Micro UA Comment Ur Microscopic Review Urine Culture Comments 06/10/18 06/10/18 06/10/18 06:12 06:12 07:57 CBC w Diff Auto diff final WBC 7.0 RBC 3.58 L Hgb 10.4 L Hct 32.2 L MCV 90.0 MCH 29.0 MCHC 32.2 RDW 16.3 Plt Count 124 L MPV 11.1 H Neut % (Auto) 60.2 Lymph % (Auto) 25.4 Lares % (Auto) 13.5 H Eos % (Auto) 0.7 Baso % (Auto) 0.2 Neut # (Auto) 4.2 Lymph # (Auto) 1.8 Lares # (Auto) 1.0 H Eos # (Auto) 0.0 Baso # (Auto) 0.0 WBC Differential . Differential Comment . Sodium 140 Potassium 4.4 Chloride 106 Carbon Dioxide 27.1 Anion Gap 7 BUN 28 H Creatinine 1.10 Estimated GFR 63 L POC Glucose 114 H Random Glucose 110 H D Calcium 9.5 Total Bilirubin 0.7 AST 20 ALT 19 Alkaline Phosphatase 65 B-Natriuretic Peptide Total Protein 5.1 L Albumin 2.5 L Ur Collection Type Urine Color Urine Clarity Urine pH Ur Specific [place] Urine Protein Urine Glucose (UA) Urine Ketones Urine Occult Blood Urine Nitrate Urine Bilirubin Urine Urobilinogen Ur Leukocyte Esterase Urine WBC Ur Squamous Epith Cells Micro UA Comment Ur Microscopic Review Urine Culture Comments - Imaging Impressions Chest X-Ray 06/09/18 00:00 CONCLUSION: Large hiatal hernia and elevation of left hemidiaphragm again seen. Mild left lung base atelectasis unchanged. - Procedures none Assessment and Plan - Assessment (1) Acute gastric dilatation Code(s): K31.0 - Acute dilatation of stomach Status: Acute - Plan This is a 87-year-old male with a history of diabetes mellitus on Tresiba, coronary artery disease status post stent, gastritis, GERD and esophageal stricture status post dilatation, gout, hyperlipidemia, hypertension, bladder cancer status post surgery and radiation therapy, prostate cancer status post surgery and kidney cancer status post ablation. Patient presents with persistent hypoglycemia related to decreased oral intake on insulin therapy. Persistent hypoglycemia history of insulin requiring diabetes mellitus latest A1c 6.9. Resolved. Patient advised to restart Tresiba at a lower dose of 20 units daily if he is tolerating meals. Hypoglycemia protocol Dilated stomach Suspect Gastroparesis. Improved on Reglan. Patient would like to go home and have gastric emptying study outpatient since he cannot be done in -house until tomorrow CKD stage III with hypokalemia. Nonoliguric. Replaced potassium DVT with SCD and SQ Heparin Discharge Planning: Discharge patient to home Condition on discharge: Improved Regular Diet as tolerated Ad Patrizia activity Rx written: Reglan Follow-up with primary care physician and nuclear medicine for gastric emptying study
[2018-06-10] MEDS: Timolol 0.5% Drops 5 ML Bottle EACH EYE SCH (11:47)
[2018-06-10 12:09] VITALS: TEMP 98.1
--- NOTE | 2018-06-11 00:15 | ECG ---
Date Performed: 06/09/2018 Time Performed: 00:14:22 PTAGE: 87 years EKG: Sinus rhythm WITH MARKED SINUS ARRHYTHMIA MARKED LEFT AXIS DEVIATION MINIMAL VOLTAGE CRITERIA FOR LVH, CONSIDER N ORMAL VARIANT POSSIBLE ANTERIOR MYOCARDIAL INFARCTION INFERIOR INFARCTION ABNORMAL ECG PREVIOUS TRACING : 02/19/2016 23.26 Since the previous tracing, no significant change noted DOCTOR: Devan Borges Interpretating Date/Time 06/11/2018 00:13:59
== END 2018-06-10 12:45 | disposition home health service (06) ==
LOC: PHED 23:13 → PHEDA 23:13 → PHICU 06-09 03:21
PROVIDERS: ADMIT Internal Medicine; ATTEND Internal Medicine